=== PATIENT | female | born 1935 | race Caucasian/White ===

== ENCOUNTER → 2016-10-05 | Outpatient (CLI) | payer MEDICARE, BC ==
--- NOTE | 2016-10-24 05:43 | ENG ---
VNG REPORT VNG INDICATIONS: An 80-year-old female with vertigo starting June, sudden onset improving. Had a total of 2 spells only, lasting 2 minutes. VNG FINDINGS: Saccades show intact peak velocities, accuracies and latencies. Gaze with fixation is negative for nystagmus in any of the directions of gaze including centrally with vision denied. Tracking shows no significantly breakups. Optokinetic nystagmus shows no significant asymmetry. Static position testing in 6 different positions with eyes open and then with vision denied was negative for any nystagmus. Héctor-Hallpike maneuvers were positive on the right. Caloric testing shows bilateral caloric weakness. IMPRESSIONS: VNG findings showed bilateral caloric weakness. Another test, such as the head thrust test are available, active and passive rotation testing is required to confirm the presence of bilateral vestibular dysfunction. Gary-Hallpike maneuvers were positive on the right suggesting a right positional vertigo. There were no abnormalities to indicate central nervous system dysfunction. MTDD
== END | disposition home or self-care (01) ==
LOC: NEUROMAIN 08:43
PROVIDERS: ATTEND Otolaryngology
DX: R42 Dizziness and giddiness (principal)
CPT/HCPCS: 92537; 92540

== ENCOUNTER → 2017-11-07 | Outpatient (CLI) | payer MEDICARE, BC ==
--- NOTE | 2017-11-07 23:13 | MR ---
EXAMINATION TYPE: MR cervical spine wo con DATE OF EXAM: 11/07/2017 COMPARISON: HISTORY: Cervicalgia / Spinal stenosis TECHNIQUE: Multiplanar, multisequence images of the cervical spine were acquired. The cervical vertebra have normal alignment. There is degenerative disc space narrowing throughout th e cervical spine. There are posterior disc herniations at C3-4 C4-5 C5-6 with encroachment on the spi nal canal and cervical spinal cord. There is slight flattening of the cord. C3-4 disc herniation is s lightly to the left side. C4-5 disc herniation is midline. C 5 6 disc herniation is midline. The alec l is narrowed to 6 mm. The brainstem appears intact. There is no compression fracture. Posterior [place] ents are intact. There is no cervical paraspinal mass. There is C7-T1 posterior central mild disc herniation with elevation of the posterior longitudinal l igament. This is present narrowly in the midline. The canal is narrowed to 7.5 mm. IMPRESSION: Multilevel spondylotic changes. Multilevel posterior cervical disc herniation that is more at levels from C3 to C6 with 6 mm spinal stenosis.
== END | disposition home or self-care (01) ==
LOC: RADMRIMAIN 13:11
PROVIDERS: ATTEND Family Medicine
DX: M48.02 Spinal stenosis, cervical region (principal); M50.21 Other cervical disc displacement, high cervical region; M47.812 Spondylosis without myelopathy or radiculopathy, cervical region
CPT/HCPCS: 72141

== ENCOUNTER → 2018-01-18 | Outpatient (CLI) | payer MEDICARE, BC ==
[2018-01-18 09:31] LABS: Basophils # (A) 0.1 k/uL (0-0.2); Basophils % (A) 1 %; Eosinophils # (A) 0.2 k/uL (0-0.7); Eosinophils % (A) 3 %; HCT 49.8 % (34.0-46.0); HGB 15.4 gm/dL (11.4-16.0); Lymphocytes # (A) 1.9 k/uL (1.0-4.8); Lymphocytes % (A) 31 %; MCH 28.2 pg (25.0-35.0); Mean Platelet Volume 6.9; Monocytes # (A) 0.5 k/uL (0-1.0); Monocytes % (A) 8 %; Neutrophils # (A) 3.3 k/uL (1.3-7.7); Neutrophils % (A) 55 %; Platelet Count 245 k/uL (150-450); RBC 5.48 m/uL (3.80-5.40); RDW 15.1 % (11.5-15.5); WBC 6.1 k/uL (3.8-10.6)
[2018-01-18 09:41] LABS: INR 1.1 (<1.2); Partial Thromboplastin Time 23.4 sec (22.0-30.0); Prothrombin Time 10.6 sec (9.0-12.0)
[2018-01-18 10:15] LABS: Albumin 3.8 g/dL (3.5-5.0); Calcium 9.5 mg/dL (8.4-10.2); Potassium 4.2 mmol/L (3.5-5.1); Total Bilirubin 0.9 mg/dL (0.2-1.3); Total Protein 6.7 g/dL (6.3-8.2)
[2018-01-18 10:27] LABS: Appearance,Urine Cloudy (Clear); Bacteria,Urine Moderate /hpf; Bilirubin,Urine Negative (Negative); Blood,Urine Negative (Negative); Color,Urine Yellow; Glucose,Urine (UA) Negative (Negative); Ketones,Urine Negative (Negative); Leukocyte Esterase,Urine Large (Negative); Mucus,Urine Rare /hpf; Nitrite,Urine Positive (Negative); PH, Urine 6.5 (5.0-8.0); Protein,Urine Negative (Negative); RBC,Urine 4 /hpf (0-5); Specific Gravity,Urine 1.013 (1.001-1.035); Squamous Epithelial Cell,Urine 5 /hpf (0-4); Urobilinogen,Urine <2.0 mg/dL (<2.0); WBC,Urine 35 /hpf (0-5)
== END ==
LOC: LABWHC1 08:30
DX: M48.02 Spinal stenosis, cervical region (principal)
CPT/HCPCS: 36415; 80053; 81001; 85025; 85610; 85730

== ENCOUNTER → 2018-08-09 | Outpatient (CLI) | payer MEDICARE, BC ==
--- NOTE | 2018-08-09 15:20 | CT ---
EXAMINATION TYPE: CT cervical spine wo con DATE OF EXAM: 08/09/2018 COMPARISON: NONE HISTORY: Spinal stenosis CT DLP: 364.9 mGycm. Automated Exposure Control for Dose Reduction was Utilized. TECHNIQUE: CT scan of the cervical spine is obtained without contrast, axial images are obtained, sa gittal and coronal reformatted images are also reviewed. FINDINGS: Cervical spine is visualized in its entirety from C1 through upper thoracic levels, demonst rates satisfactory alignment without evidence of acute fracture or dislocation. Prevertebral soft ti ssue appears within normal limits. The C1-C2 articulation is within normal limits on the coronal markell ges. Intervertebral disc space narrowing, small anterior osteophytes, and posterior disc osteophyte comple xes are seen throughout the cervical spine. Osseous demineralization is also seen. Narrowing of the a tlantodental interval is on a degenerative basis. Spinous process absence and laminectomy defects are seen from C3 through C7. There is a calcified dis c herniation at C6-C7 however this does not create spinal canal stenosis as there is surgical resecti on of the posterior elements. Uncovertebral hypertrophy and facet arthropathy creates mild left neural foraminal narrowing at C2-C3 moderate bilateral neural foraminal narrowing at C4-C5 in combination with a central disc herniation , moderate to severe bilateral neural foraminal narrowing at C5-C6, mild bilateral neural foraminal n arrowing at C6-C7, and minimal neural foraminal narrowing on the right at C7-T1. At C2-C3 there is a small central disc herniation without significant spinal canal stenosis and at C3 -C4 there is a large left paracentral disc herniation. No spinal canal stenosis is seen as there is r esection of the posterior elements at the site. Evaluation for epidural fibrosis is limited without c ontrast. Lung apices are well aerated. Extensive atherosclerosis is seen of the carotid bulbs. IMPRESSION: 1. No evidence of a vertebral body height loss or malalignment of the cervical spine. 2. Multilevel spinous process and bilateral facet resection from C3 through C7 with no spinal canal s tenosis seen at these levels given the posterior spinal canal decompression despite a large left para central disc herniation at C3-C4. 3. Multilevel neural foraminal narrowing as described above as result of uncovertebral hypertrophy an d facet arthropathy. 4. Diffuse osseous demineralization. 5. Small central disc herniation at C2-C3 without significant spinal canal stenosis.
== END | disposition home or self-care (01) ==
LOC: RADCTMAIN 13:04
DX: M48.02 Spinal stenosis, cervical region (principal); M50.21 Other cervical disc displacement, high cervical region; M81.0 Age-related osteoporosis without current pathological fracture
CPT/HCPCS: 72125

== ENCOUNTER → 2018-09-14 | Outpatient (CLI) | payer MEDICARE, BC ==
--- NOTE | 2018-09-14 10:18 | FL ---
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 TECHNIQUE: A single contrast UGI study is performed due to surgical history. A total of 48 seconds o f fluoroscopic time was utilized during procedure. 45 spot images are saved to PACS. FINDINGS: Pick Pulling Machine Tender image of the abdomen redemonstrates cholecystectomy clips and scattered pelvic phleb oliths. Overall nonobstructive bowel gas pattern. The esophagus shows some dysmotility with abnormal secondary and tertiary contractions. There is mass effect mid esophageal level from prominent ectatic aortic knob No evidence of recurrent hiatal herni a or stricture noted. The stomach shows no pooling ulcer. No significant gastroesophageal reflux was seen during real time performance of this study. The duodenal bulb, sweep, and proximal small bowel loops are unremarkable. IMPRESSION: Underlying mild to moderate Esophageal dysmotility without recurrent hernia or significan t narrowing at site of fundoplication surgery.
== END ==
LOC: RADFLWHC 08:54
PROVIDERS: ATTEND Family Medicine
DX: K22.4 Dyskinesia of esophagus (principal); D13.0 Benign neoplasm of esophagus
CPT/HCPCS: 74241

== ENCOUNTER → 2019-02-21 | Outpatient (CLI) | payer MEDICARE, BC ==
--- NOTE | 2019-02-21 15:03 | XR ---
Cervical spine with flexion and extension views HISTORY: Neck pain for months, M 47.12, spinal stenosis 8 views of the cervical spine Correlation to prior CT cervical spine dated 08/09/2018 There is multilevel spondylosis. Loss of disc height is present at the intervertebral levels especial ly at C4-5, C5-6 and C6-7. There is reversal the normal cervical lordosis. Cervical vertebral bodies show preserved height. Bone mineralization is reduced. Minimal retrolisthesis grade 1 C5-6. There is multilevel facet arthropathy. Prevertebral soft tissues are normal. No significant change and listhes is on flexion and extension views. Multilevel foraminal encroachment noted especially at C4-5, C5-6 a nd C6-7 bilaterally. Odontoid view somewhat limited. IMPRESSION: Osteopenia, degenerative disc disease, facet arthropathy.
== END | disposition home or self-care (01) ==
LOC: RADXRMAIN 14:02
DX: M50.30 Other cervical disc degeneration, unspecified cervical region (principal); M46.92 Unspecified inflammatory spondylopathy, cervical region; M85.88 Other specified disorders of bone density and structure, other site
CPT/HCPCS: 72052

== ENCOUNTER → 2019-04-12 | Outpatient (CLI) | payer MEDICARE, BC ==
--- NOTE | 2019-04-12 11:14 | MR ---
EXAMINATION TYPE: MR cervical spine wo con DATE OF EXAM: 04/12/2019 COMPARISON: Prior MRI cervical spine 11/07/2017 HISTORY: Spondylosis With Myelopathy TECHNIQUE: Multiplanar, multisequence images of the cervical spine were acquired. C2-C3: Posterior disc bulge causes mild anterior mass effect on the thecal sac. No significant centra l stenosis or foraminal encroachment. C3-C4: Left posterior paracentral disc herniation causes anterolateral mass effect on the thecal sac. Cord contact is not seen definitively on the axial images as on prior exam although there is some foley ggestion of mass effect on the lateral cervical cord, no significant foraminal encroachment. There is facet arthropathy change. C4-C5: There is a central posterior disc herniation, endplate disc complex causes anterior mass effec t on the thecal sac and possibly contacting the anterior cervical cord. Left-sided foraminal encroach ment is present due to uncovertebral joint hypertrophy and associated facet arthropathy. C5-C6: There is a posterior central disc herniation present. There may be contact the anterior cervic al cord similar to prior exam. Left-sided foraminal encroachment is present greater than right due to uncovertebral joint hypertrophy and facet arthropathy. No significant spinal stenosis. C6-C7: There is a Holter disc bulge causing anterior mass effect on the thecal sac. Some bilateral fo raminal encroachment is present due to vertebral joint hypertrophy, facet arthropathy. No significant central stenosis. C7-T1: There is a central posterior disc herniation causing anterior mass effect on the thecal sac. T here is less central stenosis. No foraminal encroachment. Cervical segments are intact. There is near normal alignment, minimal retrolisthesis grade 145, C5-6 . Cervical spinal cord is of normal signal. Craniovertebral junction relationships are within anthony l limits. There is multilevel spondylosis. Endplate discogenic marrow signal changes are again noted is loss of disc height signal at intervertebral levels especially at C2-3, 4 5, C5-6 and C6-7. IMPRESSION: Degenerative disc disease, multilevel disc herniations, foraminal encroachment similar to prior exam.
== END | disposition home or self-care (01) ==
LOC: RADMRIMAIN 08:59
DX: M50.00 Cervical disc disorder with myelopathy, unspecified cervical region (principal)
CPT/HCPCS: 72141

== ENCOUNTER 2020-01-03 07:30 | Day surgery (SDC) | payer MEDICARE, BC ==
[2020-01-01 13:40] VITALS: BMI 25.8
[~2020-01-03 07:30] MED LIST: ALPRAZolam 0.25 MG TAB PO PRN; ALPRAZolam 0.5 MG TAB PO PRN; ASPIRIN 325 MG TAB PO ONE; ATORVASTATIN 80 MG TAB PO ONE; NITROGLYCERIN SL TABS 0.4 MG TAB SUBLINGUAL PRN; SODIUM CHLORIDE 0.9% 1,000 ML in EMPTY BAG 1 BAG IV ONE
[2020-01-03] MEDS ORDERED: fentaNYL (PF) 50 MCG/ML 2 ML AMP ONE ×2 (08:21→11:05)
[2020-01-03] MEDS: BENZOCAINE SPRAY 1 CAN TOPICAL ONE ×2 (08:29→08:35)
[2020-01-03] MEDS ORDERED: IV FLUID CONTINUATION 1,000 ML IV ONE (08:30)
[2020-01-03] MEDS: fentaNYL (PF) 50 MCG/ML 2 ML AMP IV ONE ×2 (08:56→09:01)
[2020-01-03] MEDS ORDERED: MIDAZOLAM 2 MG/2 ML VIAL IV ONE (08:57)
[2020-01-03] MEDS ORDERED: SODIUM CHLORIDE 0.9% 1,000 ML IV SCH ×2 (09:15→12:15)
--- NOTE | 2020-01-03 09:17 | P.TEE ---
Indications for Procedure(s): Aortic stenosis Date of Procedure: 01/03/20 Preoperative Diagnosis: Aortic stenosis Postoperative Diagnosis: Critical aortic stenosis Procedure(s) Performed: MANINDER Description of Procedure(s): INDICATION: This is a 84-year-old female was found to have severe aortic stenosis by transthoracic echo. A MANINDER examination is requested to assess aortic valve disease and also mitral valve disease CONSENT:, Verbal informed consent was obtained from the patient PROCEDURE: The patient was brought to the lab in a fasting state. She was prepped and draped in the usual fashion. The throat was sprayed with Cetacaine. A lubricated Omni probe was introduced in the oropharynx and advanced into the esophagus and stomach and she was given 2 mg of Versed and 50 g of fentanyl for sedation. Multiple views obtained from both stomach and esophagus. Color, pulsed and continuous Doppler studies were performed. Saline contrast bubble injection was also performed. Patient tolerated the procedure well. No im mediate complications FINDINGS:. The aortic valve appears to be calcified and trileaflet. There is a restricted opening excursion with a valve area of about 0.9 cm. There is no aortic regurgitation. The peak gradient of about 68 with a mean of 53 was obtained suggestive of severe aortic stenosis. Mitral valve showed moderate mitral regurgitation, which is central. The PISA value is about 0.6. The left atrial appendage is free of any clot. The interatrial septum is intact. No spontaneous can't. No crossing of bubbles with injection of the saline contrast bubbles. LV function appeared with preserved. The aorta showed mild to moderate plaque IMPRESSION: #1. Critical aortic stenosis. #2. Moderate mitral regurgitation. #3. No PFO #4. No clot in the left atrial appendage. #5. Left ventricular function is preserved. #6. There is mild to moderate plaque in the aorta. Plan: Proceed with cardiac catheterization. May need aortic valve replacement .
[2020-01-03] MEDS ORDERED: LIDOCAINE 1% INJ 10MG/ML (20 ML MDV) ONE (10:43)
[2020-01-03] MEDS ORDERED: MIDAZOLAM 2 MG/2 ML VIAL IVP ONE ×2 (11:11)
[2020-01-03 11:38] LABS: O2 Sat Blood Gas 75.4 %
[2020-01-03 11:40] LABS: O2 Sat Blood Gas 75.7 %
[2020-01-03] MEDS ORDERED: IOPAMIDOL-370 100ML BTL INJ ONE (11:40)
[2020-01-03] MEDS ORDERED: NITROGLYCERIN SL TABS 0.4 MG TAB SUBLINGUAL ONE ×2 (11:42→11:50)
[2020-01-03 12:45] VITALS: RESP 16; TEMP 97.4
--- NOTE | 2020-01-03 13:27 | CC ---
CARDIAC CATHETERIZATION REPORT DATE OF SERVICE: 01/03/2020 PROCEDURE: Right and left heart catheterization and coronary angiography. PERFORMED BY: Dr. Darin Felder. Moderate conscious sedation time was 31 minute. Patient was administered Versed. Oxygen saturation, hemodynamics and EKG were monitored closely. PROCEDURE NOTE: Under local anesthesia and strict aseptic precautions, a 6-Stateless introducer was placed in the right femoral artery and 8-Stateless introducer in the right femoral vein under strict aseptic precautions and local anesthesia. Using a balloon-tipped floatation catheter, I performed right heart catheterization, checked the thermodilution and cardiac outputs. Saturations were obtained. Following that coronary angiography was performed using standard Lisa catheters. LV pressures were not checked. The sheaths were taken out, manual compression used to secure hemostasis and patient was sent to the room in stable condition. CARDIAC CATHETERIZATION FINDINGS: Right atrial pressure was 3 mmHg, right ventricular pressure was 34/3, pulmonary artery pressure was 34/12 with a mean of 20. Pulmonary capillary wedge pressure was 13 mmHg. Femoral artery saturation was 93%, pulmonary artery saturation was 75%. There was no oxygen step-up. Thermodilution cardiac output was obtained, but it was inaccurate, it was over 10 L. José cardiac output was also obtained. CORONARY ANGIOGRAPHIC FINDINGS: RIGHT CORONARY ARTERY: A very dominant vessel, moderate to heavily calcified. No significant obstructive disease and distally bifurcates into a large PDA and PLV, both of which supply a sizable amount of myocardium. There is no significant disease in the RCA which is very calcified. RCA appears to be a super dominant vessel with a very large PLV system and a moderate-sized PDA system. No significant disease. LEFT MAIN CORONARY ARTERY: Long patent disease-free vessel that bifurcates into LAD and circumflex. LEFT ANTERIOR DESCENDING CORONARY ARTERY: This is a very tortuous vessel. Moderate calcification seen throughout. It gives off septal and diagonal branches. At the origin of the diagonal branch there is eccentric 70%-80% stenosis, calcified and the diagonal at its origin also has a 70% to 80% stenosis. The LAD and diagonal are both moderately calcified and the disease is quite significant. Just before the 70-80% stenosis in the LAD there is also another 30-40% narrowing. Diagonal at its origin has 80% narrowing. Beyond the stenosis, the LAD and diagonal are of good caliber and supplies a sizable amount of myocardium. There is another large second diagonal which is free of significant disease and several septal branches are also free of significant disease. LEFT POSTERIOR CIRCUMFLEX CORONARY ARTERY: Nondominant vessel, fair caliber and distribution, supplies a sizable amount of myocardium. Minor irregularities. No significant disease. Left ventriculogram was not performed and LV pressures were not checked. FINAL IMPRESSION: This patient has normal right-sided pressures. Thermodilution cardiac output is inaccurate. José cardiac output is pending at the time of the dictation. Arterial saturation was 93% and vein and pulmonary saturation was 75%. FINAL IMPRESSION: This patient has a right dominant system, calcified RCA, super dominant vessel, no significant disease. The circumflex is nondominant, no significant disease. Mid LAD moderately calcified, has a moderate-sized length of disease with 80% stenosis and the ostium of the diagonal that comes off from the diseased segment also has 80% stenosis. The right-sided pressures are normal and thermodilution cardiac output is inaccurate and José cardiac output is still pending at the time of the dictation. RECOMMENDATIONS: For now I am recommending that we will seek a surgical opinion and the patient will be given options of open surgery with a graft to the LAD and diagonal versus percutaneous intervention of the LAD and diagonal and percutaneous aortic valve implant. This discussion will occur as an outpatient and I have requested Dr. Cooper to see the patient today in this regard. MMSHITALL / IJN: [id number] /
[2020-01-03 16:33] VITALS: PULSE 57
[2020-01-03 16:34] VITALS: BP 143/77
--- NOTE | 2020-01-03 17:09 | P.GSCN ---
History of Present Illness Consult date: 01/03/20 Reason for Consult: Critical aortic valve stenosis, moderate mitral valve regurgitation and coronary artery disease. Requesting physician: Pablo Felder History of present illness: This is an 84-year-old female patient who is followed by Dr. See Lane on an outpatient basis. She also follows with Dr. BRONSON Felder from cardiology for aortic valve stenosis. She has a past medical history significant for hyperte nsion, degenerative joint disease status post cervical spine surgery. Recently, the patient has had complaints of shortness of breath and feelings of fatigue with activity. She reports that her shortness of breath does resolve with periods of rest. A 2-D echocardiogram was completed on 12/02/2019 which demonstrated a normal left ventricular size with normal function, intermediate diastolic dysfunction with an ejection fraction of 60%, abnormal, trileaflet aortic valve, trace aortic valve regurgitation, severe aortic valve stenosis with an aortic valve area of 0.91 cm, a peak/mean gradient 67 mmHg/54 mmHg, moderate mitral valve regurgitation, [id number] tricuspid valve regurgitation and physiologic pulmonic valve regurgitation. Due to the findings on the 2-D echocardiogram and the patient's symptoms of shortness of breath she was recommended to undergo a transesophageal echocardiogram and cardiac catheterization. Today 01/03/2020 she underwent an elective cardiac catheteriza tion and transesophageal echocardiogram. The transesophageal echocardiogram results demonstrated a critical aortic valve stenosis with a restricted opening excursion with a valve area of about 0.9 cm, no aortic valve regurgitation a peak gradient across the aortic valve 68 mmHg and a mean gradient of 53 mmHg suggestive of severe aortic valve stenosis. It also showed moderate mitral valve regurgitation with a central jet, PISA value was about 0.6, a preserved left ventricular function and mild to moderate plaque in the aorta. The cardiac catheterization results showed her mid left anterior descending coronary artery to be moderately calcified with a moderate sized length of disease with an 80% stenosis of the ostium of the diagonal coronary artery and an 80% stenosis of her diagonal coronary artery. Subsequently, due to the findings on the transesophageal echocardiogram and cardiac catheterization results a consult was placed to Dr. Alex Cooper for further evaluation and treatment recommendations. Review of Systems A 14 point review systems was completed and was negative except as mentioned in the HPI. 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, alicia fundloplication neck c1 to c6 stenosis had surgery, cataracts bilateral eyes Past Anesthesia/Blood Transfusion Reactions: No Reported Reaction Additional Past Anesthesia/Blood Transfusion Reaction / Comm: no problems w/ prior blood transfusion Past Psychological History: No Psychological Hx Reported Smoking Status: Never smoker Past Alcohol Use History: Rare Past Drug Use History: None Reported - Past Family History Father Family Medical History: Cancer Brother(s) Family Medical History: Cancer Sister(s) Family Medical History: Cancer Medications and Allergies Home Medications Medication Instructions Recorded Confirmed Type amLODIPine BESYLATE [Norvasc] 10 mg PO QAM 12/16/14 01/03/20 History Cholecalciferol [Vitamin D3] 1,000 unit PO DAILY 12/23/15 01/03/20 History Multivitamins, Thera [Multivitamin] 1 tab PO DAILY 12/23/15 01/03/20 History Vit C/E/Zn/Coppr/Lutein/Zeaxan 1 each PO DAILY 01/01/20 01/03/20 History [Preservision Areds 2 Softgel] Allergies Allergy/AdvReac Type Severity Reaction Status Date / Time hydromorphone HCl AdvReac Hallucinati Verified 01/03/20 07:41 [From Dilaudid] ons Surgical - Exam Vital Signs Temp Pulse Resp BP Pulse Ox 98.1 F 63 18 160/77 97 01/03/20 07:56 01/03/20 07:56 01/03/20 07:56 01/03/20 07:56 01/03/20 07:56 - General well developed, well nourished, no distress, no pain - Eyes PERRL, normal ocular movement, no icteric - ENT normal pinna, normal nares, normal mucosa, no hearing loss, no congestion - Neck Neck is supple, no JVD, bilateral carotid bruits present. no masses, trachea midline, no venous distension - Respiratory Lung sounds are essentially clear throughout. No wheezes, rhonchi or crackles. Respirations are symmetrical and Nonlabored. - Cardiovascular Regular rhythm with a bradycardic rate. S1 and S2 present, negative for S3 or gallop. Positive systolic murmur 3/6 at the base. No edema present. - Abdomen Abdomen is soft, nontender and nondistended. Active bowel sounds present all 4 abdominal quadrants. No guarding or rigidity. No organomegaly appreciated. - Genitourinary Deferred - Rectum Deferred - Integumentary no rash, no growths, no abnormal pigmentation - Neurologic Cranial nerves II through XII intact. normal coordination, normal sensation - Musculoskeletal normal gait, normal posture - Psychiatric oriented to time, oriented to person, oriented to place, speech is normal, memory intact Results - Imaging Additional studies: Transesophageal echocardiogram films and cardiac catheterization films reviewed by Dr. Alex Cooper. Assessment and Plan Assessment: 1. Severe aortic valve stenosis 2. Coronary artery disease 3. Moderate mitral valve regurgitation 4. Hypertension 5. 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 Her chart and diagnostics were reviewed. The patient's daughter is present at her bedside. The patient was also seen and examined by Dr. Alex Cooper from cardiothoracic surgery. Dr. Cooper reviewed the findings on the transesophageal echocardiogram and cardiac catheterization films with the patient and her daughter present at her bedside. Treatment options for aortic valve stenosis and coronary artery disease discussed with the patient including TAVR and PCI. Dr. Cooper recommends proceeding with TAVR and PCI. The patient agreed with this treatment option and wishes to proceed. The patient reports she is to follow-up with Dr. Felder in the office in the next coming week with timing of PCI and TAVR to be discussed. Thank you Dr. Felder for this consult and we will look for to working with you in the care of this patient. Time with Patient: Greater than 30
== END 2020-01-03 19:01 | disposition home or self-care (01) ==
LOC: CATHCVL 07:30 → 3NCARDOBS 12:24 → CATHCVL 19:01
PROVIDERS: ATTEND Internal Medicine Cardiovascular Disease
DX: I08.3 Combined rheumatic disorders of mitral, aortic and tricuspid valves (principal); I25.10 Atherosclerotic heart disease of native coronary artery without angina pectoris; I77.1 Stricture of artery; I70.0 Atherosclerosis of aorta; R06.02 Shortness of breath; R53.83 Other fatigue; I10 Essential (primary) hypertension; M47.892 Other spondylosis, cervical region; M47.896 Other spondylosis, lumbar region; H35.30 Unspecified macular degeneration; I49.3 Ventricular premature depolarization; M50.30 Other cervical disc degeneration, unspecified cervical region; R09.89 Other specified symptoms and signs involving the circulatory and respiratory systems; Z79.899 Other long term (current) drug therapy; Z90.49 Acquired absence of other specified parts of digestive tract; Z98.890 Other specified postprocedural states; Z90.710 Acquired absence of both cervix and uterus; Z90.89 Acquired absence of other organs; Z87.19 Personal history of other diseases of the digestive system; Z98.41 Cataract extraction status, right eye; Z98.42 Cataract extraction status, left eye; Z88.5 Allergy status to narcotic agent; Z80.9 Family history of malignant neoplasm, unspecified
CPT/HCPCS: 93312; 93320; 93325; 93456; 85018; 82810; C1769 ×3; C1894 ×2; J2250; J3010; Q9967

== ENCOUNTER 2020-01-21 10:59 | Day surgery (SDC) | payer MEDICARE, BC ==
[2020-01-16 13:05] VITALS: BMI 26.6
[~2020-01-21 10:59] MED LIST changes: -ASPIRIN 325 MG TAB PO ONE; +ASPIRIN 325 MG TAB PO STA; -ATORVASTATIN 80 MG TAB PO ONE
[2020-01-21] MEDS ORDERED: SODIUM CHLORIDE 0.9% 1,000 ML IV ONE (11:47)
[2020-01-21] MEDS: MIDAZOLAM 2 MG/2 ML VIAL IV ONE ×4 (12:10→12:15)
[2020-01-21] MEDS ORDERED: LIDOCAINE 1% INJ 10MG/ML (20 ML MDV) SQ ONE (12:14)
[2020-01-21] MEDS ORDERED: IOPAMIDOL-370 100ML BTL INJ ONE ×2 (12:30→13:51)
[2020-01-21] MEDS ORDERED: NITROGLYCERIN 1000MCG/10ML SYRINGE INTRACORON ONE (13:29)
[2020-01-21] MEDS ORDERED: CLOPIDOGREL 75 MG TAB PO ONE (13:47)
[2020-01-21] MEDS ORDERED: ATROPINE SULFATE 0.1 MG/ML 10ML SYRINGE IV PRN (13:50)
[2020-01-21] MEDS ORDERED: RX INFO: IV CONTRAST WAS GIVEN 1 EACH MISC MISCELLANE PRN (13:50)
[2020-01-21] MEDS ORDERED: ZOLPIDEM 5 MG TAB PO PRN (13:50)
[2020-01-21] MEDS ORDERED: MAG HYDROX/AL HYDROX/SIMETH 30 ML CUP PO PRN (13:50)
[2020-01-21] MEDS ORDERED: SODIUM CHLORIDE 0.9% 1,000 ML IV SCH (14:00)
--- NOTE | 2020-01-21 18:38 | PTCA ---
PERCUTANEOUSTRANS CORORONARY ANGIOGRAPHY DATE OF SERVICE: 01/21/2020 PROCEDURE: 1. Orbital atherectomy of proximal/mid left anterior descending coronary artery. 2. Percutaneous transluminal coronary angioplasty and stenting of proximal/mid left anterior descending coronary artery with 2 drug-eluting stents. PERFORMED BY: Dr. Darin Felder. Moderate conscious sedation time was 84 minutes. Patient was administered Versed. Oxygen saturation, hemodynamics and EKG were monitored closely. CLINICAL INFORMATION: Mrs. China Coreas is an 84-year-old elderly lady with a history of severe aortic stenosis and hypertension who underwent cardiac cath and transesophageal echo about 3 weeks ago. Study revealed severe aortic stenosis. Patient was seen by Cardiac Surgery, who advised PCI and TAVR as opposed to open surgery. After extensive discussion with the patient and her daughter, she was brought in for the procedure electively. Given moderate calcification involving the LAD, she was advised orbital atherectomy. PROCEDURE NOTE: Under local anesthesia and strict aseptic precautions, a 6-Australian introducer was placed in the right femoral artery. A JL3.5 guide catheter was used to cannulate the left coronary artery. Initially I tried a Whisper wire, then switched over to a run-through wire and crossed the lesion, and wire was kept distally. With a Teleport catheter, I exchanged this wire for a Nitinol atherectomy wire. I then performed orbital atherectomy. There was some difficulty advancing the catheter, and I had to use a Dynaglide. Three passes were made, with modest improvement. Subsequently I tried to advance a stent, but I had difficulty. I switched over to a 3.0 caliber 12 mm NC Trek balloon. With this I pre-dilated the lesion and also proximal to the lesion. I was able to improve the lesion substantially angiographically. I then switched over to another short run-through wire. I advanced initially a 15 mm 3.5 caliber Xience stent, but I had difficulty because of tortuosity and calcification proximal to the lesion. I switched over to an 8 mm long 3.5 caliber Xience stent and deployed this in the lesion to the distal aspect of the lesion. Another 3.5 caliber 8 mm Xience stent was deployed proximal to it, telescoping into it. Both stents were deployed at 13 atmospheres. Patient had chest pain, precordial T-wave prominence and mild ST elevation. Excellent angiographic result without complication was achieved. Patient received heparin intravenously and ACT was about 331. She received 600 mg of Plavix. Multiple final angiograms were obtained. The sheath was then taken out and an Angio-Seal device used to secure hemostasis. The patient was sent to the room in a stable condition. Excellent angiographic result without complication was achieved. Results were discussed with the patient as well as her daughter. She will be discharged tomorrow if she remains stable. MMYULI / MARYN: [id number] /
[2020-01-22 00:29] VITALS: RESP 16
[2020-01-22 06:57] LABS: Basophils # (A) 0.1 k/uL (0-0.2); Basophils % (A) 1 %; Eosinophils # (A) 0.2 k/uL (0-0.7); Eosinophils % (A) 3 %; HCT 41.1 % (34.0-46.0); HGB 13.2 gm/dL (11.4-16.0); Lymphocytes # (A) 1.4 k/uL (1.0-4.8); Lymphocytes % (A) 24 %; MCH 29.3 pg (25.0-35.0); MCHC 32.3 g/dL (31.0-37.0); MCV 90.8 fL (80.0-100.0); Mean Platelet Volume 8.1; Monocytes # (A) 0.5 k/uL (0-1.0); Monocytes % (A) 8 %; Neutrophils # (A) 3.8 k/uL (1.3-7.7); Neutrophils % (A) 63 %; Platelet Count 182 k/uL (150-450); RBC 4.52 m/uL (3.80-5.40); RDW 14.5 % (11.5-15.5); WBC 6.1 k/uL (3.8-10.6)
[2020-01-22 07:01] LABS: Calcium 8.3 mg/dL (8.4-10.2); Potassium 3.9 mmol/L (3.5-5.1)
[2020-01-22 07:35] VITALS: BP 129/79; PULSE 65; TEMP 97.8
[2020-01-22] MEDS ORDERED: ASPIRIN 81 MG PO SCH (09:00)
[2020-01-22] MEDS ORDERED: ATORVASTATIN 40 MG TAB PO SCH (09:00)
[2020-01-22] MEDS ORDERED: CHOLECALCIFEROL 1,000 UNIT TAB PO SCH (09:00)
[2020-01-22] MEDS ORDERED: VIT A,C & E-LUTEIN-MINERALS 1 EACH TAB PO SCH (09:00)
[2020-01-22] MEDS ORDERED: MULTIVITAMINS, THERA 1 EACH TAB PO SCH (09:00)
[2020-01-22] MEDS ORDERED: amLODIPine 10 MG TAB PO SCH (09:00)
[2020-01-22] MEDS ORDERED: METOPROLOL TARTRATE 12.5 MG TAB PO SCH (09:00)
--- NOTE | 2020-01-22 09:39 | DS ---
DISCHARGE SUMMARY DATE OF ADMISSION: 01/21/2020 DATE OF DISCHARGE: 01/22/2020. DIAGNOSES: 1. CAD with unstable angina. 2. Severe aortic stenosis. 3. Hypertension. 4. Hyperlipidemia. Mrs. China Coreas was admitted to the hospital electively for a PCI of the mid LAD, which was a calcified severe lesion. She has severe aortic stenosis, was seen by Cardiac Surgery. Advised to have percutaneous intervention of coronary disease and a percutaneous aortic valve implant down the road. With this plan, she was brought in for the procedure yesterday. I performed from the right femoral approach. PTCA and stenting of proximal/mid LAD with orbital atherectomy and 2 drug-eluting stents. Excellent angiographic result was achieved. Postprocedure course was unremarkable. There was there was a small hematoma, but this morning the groin looks clean and dry. There is no bruit. There is no evidence of any significant hematoma. Hemoglobin, platelet count, and renal function are stable. EKG is unremarkable. She is asymptomatic Blood pressure 130/70, pulse rate is 70 per minute, ejection systolic murmur is audible lungs are clear abdomen looks exam unchanged right groin is clean and dry with a small focal area of tenderness. No significant hematoma or bruit. Distal pulses are good. Plan is to discharge her today and I will see her in the office this Monday at 10 am. Discharge instructions regarding activity, diet and medications were given. She will be on dual antiplatelet therapy, beta michelle and statin agent and amlodipine. MMODL / IJN: [id number] /
[2020-01-22] MEDS ORDERED: CLOPIDOGREL 75 MG TAB PO SCH (12:00)
== END 2020-01-22 11:21 | disposition home or self-care (01) ==
LOC: CATHCVL 10:59 → 3SCARD 14:11 → CATHCVL 01-22 11:21
PROVIDERS: ATTEND Internal Medicine Interventional Cardiology
DX: I25.110 Atherosclerotic heart disease of native coronary artery with unstable angina pectoris (principal); I35.0 Nonrheumatic aortic (valve) stenosis; I10 Essential (primary) hypertension; I49.3 Ventricular premature depolarization; E78.5 Hyperlipidemia, unspecified; M47.812 Spondylosis without myelopathy or radiculopathy, cervical region; H35.30 Unspecified macular degeneration; Z79.899 Other long term (current) drug therapy
CPT/HCPCS: 85347; 80048; 85025; C9602; C1769 ×7; C1760; C1887; C1725; C1894; C1714; C1874; J2250; J2001; J1644; Q9967

== ENCOUNTER → 2020-09-04 | Outpatient (CLI) | payer MEDICARE, BC ==
--- NOTE | 2020-09-04 11:14 | MR ---
EXAMINATION TYPE: MR brain and iac wo/w con DATE OF EXAM: 09/04/2020 COMPARISON: Prior brain MRI 09/17/2009 HISTORY: DIZZY, FACIAL NERVE DISORDER, HEARING LOSS, TINNITUS, R/O MINI STROKES TECHNIQUE: Multiplanar, multisequence images of the brain and brainstem is performed without and with IV contras t, utilizing 7.5ML mL intravenous Gadavist . FINDINGS: Diffusion weighted images demonstrate no evidence of a recent infarct or other diffusion ab normality. There is no extra-axial fluid collection abnormality. There is been some progression in white matter signal changes on inversion recovery T2-weighted sequences the pericallosal, periventric ular white matter, focus of encephalomalacia present within the anterior limb of the internal capsule on the left has developed in the interval. Pericallosal hyperintensity on axial image 23 and inversi on recovery dataset measures 1.7 cm in AP dimension of approximately 20-30 lesions are present, there is some progression of hyperintensity within the right duy and inversion recovery, T2-weighted sequ ences, hypointensity on T1-weighted images. The ventricular system and cisternal spaces are normal in size and appearance. The brain volume is age appropriate. Additionally, there is no cerebellopontine angle mass, no evident abnormal enhancement within the int ernal auditory canals. Midline structures demonstrate normal morphology. The craniocervical junction appears within normal limits. Post contrast images demonstrate no abnormal enhancement. The dural venous sinuses appear pa tent. The visualized sinuses are are cool for minimal mucosal disease along the ethmoid air cells, an d the globes are intact. IMPRESSION: Nonspecific white matter demyelination may be due to chronic small vessel ischemic change s, there is encephalomalacia that is developed in the interval as described. No evident cerebellopont ine angle mass, no abnormal enhancement or soft tissue along the internal auditory canals.
== END | disposition home or self-care (01) ==
LOC: RADMRIMAIN 09:32
PROVIDERS: ATTEND Otolaryngology
DX: R09.89 Other specified symptoms and signs involving the circulatory and respiratory systems (principal)
CPT/HCPCS: 70553; A9585

== ENCOUNTER → 2021-01-22 | Outpatient (CLI) | payer MEDICARE, BC ==
[2021-01-22 15:04] LABS: Basophils # (A) 0.08 X 10*3/uL (0.00-0.10); Basophils % (A) 1.1 %; Eosinophils # (A) 0.13 X 10*3/uL (0.04-0.35); Eosinophils % (A) 1.8 %; HCT 47.6 % (37.2-46.3); Lymphocytes # (A) 1.85 X 10*3/uL (0.90-5.00); Lymphocytes % (A) 25.2 %; MCH 28.2 pg (27.0-32.0); MCHC 31.5 g/dL (32.0-37.0); MCV 89.6 fL (80.0-97.0); Mean Platelet Volume 11.1 fL (9.5-12.2); Monocytes # (A) 0.83 X 10*3/uL (0.20-1.00); Monocytes % (A) 11.3 %; Neutrophils # (A) 4.44 X 10*3/uL (1.80-7.70); Neutrophils % (A) 60.3 %; Platelet Count 226 X 10*3/uL (140-440); RBC 5.31 X 10*6/uL (4.10-5.20); RDW 15.9 % (11.5-14.5); WBC 7.35 X 10*3/uL (4.50-10.00)
[2021-01-22 22:00] LABS: African American GFR (CKD) 78.6 (60.0-200.0); Albumin/Globulin Ratio 1.6 (1.60-3.17); Anion Gap 14.3 mmol/L (4.00-12.00); BUN/Creat Ratio 27.72 Ratio (12.00-20.00); Blood Urea Nitrogen 21.9 mg/dL (9.0-27.0); Carbon Dioxide 22.9 mmol/L (21.6-31.8); Chol/HDL Ratio 2.01 Ratio; Globulin 2.5 g/dL (1.6-3.3); HDL Cholesterol 57.6 mg/dL (40.00-60.00); LDL Cholesterol,Calculated 39.1 mg/dL (0.0-131.0); Non-African American GFR(CKD) 67.8 (60.0-200.0); Potassium 4.3 mmol/L (3.5-5.5); Total Bilirubin 0.6 mg/dL (0.30-1.20); Total Protein 6.5 g/dL (6.2-8.2); Triglycerides 96.7 mg/dL (0.00-149.00); VLDL Calculation 19.34 mg/dL (5.00-40.00)
== END | disposition home or self-care (01) ==
LOC: LABWHC1 10:21
PROVIDERS: ATTEND Physician Assistant
DX: Z00.00 Encounter for general adult medical examination without abnormal findings (principal); I10 Essential (primary) hypertension; E78.2 Mixed hyperlipidemia; E55.9 Vitamin D deficiency, unspecified
CPT/HCPCS: 36415; 80053; 80061; 82306; 84443; 85025

== ENCOUNTER 2022-12-15 06:12 | Inpatient (IN) | payer MEDICARE, BC ==
[2022-12-15] MEDS ORDERED: SODIUM CHLORIDE 0.9% 1,000 ML IV STA (06:20)
[2022-12-15] MEDS ORDERED: METOCLOPRAMIDE 5 MG/ML 2 ML VIAL IVP STA (06:20)
[2022-12-15] MEDS ORDERED: IBUPROFEN 600 MG TAB PO STA (06:21)
[2022-12-15] MEDS ORDERED: ACETAMINOPHEN IV (For NPO) 1,000 MG in EMPTY BAG 1 BAG IVPB STA (06:21)
--- NOTE | 2022-12-15 06:33 | ED ---
Fever HPI - General Chief Complaint: Fever Stated Complaint: Fever Time Seen by Provider: 12/15/22 06:15 Source: patient, EMS, RN notes reviewed Mode of arrival: EMS Limitations: no limitations - History of Present Illness Initial Comments: 86-year-old female presents emergency Department chief complaint of fever, nausea and vomiting. Patient states she had this rapid woke her up which she states she was cold, had chills noted had a fever. Patient does admit to nausea, sweating up of phlegm. Patient states she has no localized abdominal pain denies any significant back, neck pain and she doesn't that she has urinary frequency with this is an ongoing issue. Patient had no sick contacts. - Related Data Home Medications Medication Instructions Recorded Confirmed amLODIPine BESYLATE [Norvasc] 10 mg PO DAILY 12/16/14 12/15/22 Multivitamins, Thera [Multivitamin] 1 tab PO DAILY 12/23/15 12/15/22 Vit C/E/Zn/Coppr/Lutein/Zeaxan 1 cap PO DAILY 01/01/20 12/15/22 [Preservision Areds 2 Softgel] Aspirin [Adult Low Dose Aspirin EC] 81 mg PO DAILY 01/16/20 12/15/22 Atorvastatin [Lipitor] 40 mg PO DIRECTED 01/16/20 12/15/22 Metoprolol Tartrate 25 mg PO DAILY 01/16/20 12/15/22 Cholecalciferol [Vitamin D3 (25 25 mcg PO DAILY 12/15/22 12/15/22 Mcg = 1000 Iu)] Clopidogrel [Plavix] 75 mg PO DAILY 12/15/22 12/15/22 Mirabegron [Myrbetriq] 50 mg PO DAILY 12/15/22 12/15/22 Allergies Allergy/AdvReac Type Severity Reaction Status Date / Time citalopram [From Celexa] AdvReac chest Verified 12/15/22 08:27 tightness hydromorphone HCl AdvReac Hallucinati Verified 12/15/22 08:27 [From Dilaudid] ons Review of Systems ROS Statement: Those systems with pertinent positive or pertinent negative responses have been documented in the HPI. ROS Other: All systems not noted in ROS Statement are negative. 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, alicia fundloplication, neck c1 to c6 surgery for stenosis, cataracts bilateral eyes, MANINDER Past Anesthesia/Blood Transfusion Reactions: No Reported Reaction Additional Past Anesthesia/Blood Transfusion Reaction / Comment(s): no problems w/ prior blood transfusion Past Psychological History: No Psychological Hx Reported Smoking Status: Never smoker - Past Family History Father Family Medical History: Cancer Brother(s) Family Medical History: Cancer Sister(s) Family Medical History: Cancer General Exam Limitations: no limitations General appearance: alert, in no apparent distress Head exam: Present: atraumatic, normocephalic, normal inspection Eye exam: Present: normal appearance, PERRL, EOMI. Absent: scleral icterus, conjunctival injection, periorbital swelling ENT exam: Present: normal exam, normal oropharynx, mucous membranes moist Neck exam: Present: normal inspection, full ROM. Absent: tenderness, meningismus, lymphadenopathy Respiratory exam: Present: normal lung sounds bilaterally. Absent: respiratory distress, wheezes, rales, rhonchi, stridor Cardiovascular Exam: Present: normal rhythm, tachycardia, normal heart sounds. Absent: systolic murmur, diastolic murmur, rubs, gallop, clicks GI/Abdominal exam: Present: soft, normal bowel sounds. Absent: distended, tenderness, guarding, rebound, rigid Back exam: Absent: CVA tenderness (R), CVA tenderness (L) Neurological exam: Present: alert, oriented X3 Course Vital Signs 12/15/22 12/15/22 12/15/22 06:14 07:21 08:34 Temperature 101.0 F H 101.2 F H 101.1 F H Pulse Rate 102 H 77 Respiratory 20 18 Rate Blood Pressure 187/77 124/65 O2 Sat by Pulse 97 95 Oximetry 12/15/22 09:21 Temperature 100.3 F H Pulse Rate 90 Respiratory 20 Rate Blood Pressure 135/61 O2 Sat by Pulse 97 Oximetry Medical Decision Making - Medical Decision Making Was pt. sent in by a medical professional or institution (, PA, EDUCATION PROGRAM COORDINATOR, urgent care, hospital, or snf...) When possible be specific @ -[residential] Did you speak to anyone other than the patient for history (EMS, parent, family, police, friend...)? What history was obtained from this source @ -[No] Did you review nursing and triage notes (agree or disagree)? Why? @ -[I reviewed and agree with nursing and triage notes] Were old charts reviewed (outside hosp., previous admission, EMS record, old EKG, old radiological studies, urgent care reports/EKG's, snf records)? Report findings @ -[No old charts were reviewed] Differential Diagnosis (chest pain, altered mental status, abdominal pain women, abdominal pain men, vaginal bleeding, weakness, fever, dyspnea, syncope, headache, dizziness, GI bleed, back pain, seizure, CVA, palpatations, mental health, musculoskeletal)? @ -[Differential Fever: Pneumonia, viral URI, endocarditis, myocarditis, pericarditis, otitis, sinusitis, peritonsillar Abscess, retropharyngeal Abscess, epiglottitis, peritonitis, appendicitis, Tammy cystitis, diverticulitis, hepatitis, colitis, UTI, PID, TOA, pyelonephritis, prostatitis, epididymitis, meningitis, encephalitis, pulmonary embolism, CVA, thyroid storm, pancreatitis, adrenal c risis, cavernous sinus thrombosis, this is not meant to be an all-inclusive list. ] EKG interpreted by me (3pts min.). @ -[As above] X-rays interpreted by me (1pt min.). @ -[Chest x-ray shows left lower lobe pneumonia, pleural effusion] CT interpreted by me (1pt min.). @ -[None done] U/S interpreted by me (1pt. min.). @ -[None done] What testing was considered but not performed or refused? (CT, X-rays, U/S, labs)? Why? @ -[None] What meds were considered but not given or refused? Why? @ -[None] Did you discuss the management of the patient with other professionals (professionals i.e. , PA, EDUCATION PROGRAM COORDINATOR, lab, RT, psych nurse, social science research assistant, automobile engine assembler, teacher, control officer, pillowcase turner)? Give summary @ -[Dr. mejia for admission given patient's presentation of fever, leukocytosis, lactic acidosis concerns for pneumonia.] Was smoking cessation discussed for >3mins.? @ -[No] Was critical care preformed (if so, how long)? @ -[No] Were there social determinants of health that impacted care today? How? (Homelessness, low income, unemployed, alcoholism, drug addiction, transportation, low edu. Level, literacy, decrease access to med. care, usp, rehab)? @ -[No] Was there de-escalation of care discussed even if they declined (Discuss DNR or withdrawal of care, Hospice)? DNR status @ -[No] What co-morbidities impacted this encounter? (DM, HTN, Smoking, COPD, CAD, Cancer, CVA, ARF, Chemo, Hep., AIDS, mental health diagnosis, sleep apnea, morbid obesity)? @ -[None] Was patient admitted / discharged? Hospital course, mention meds given and route, prescriptions, significant lab abnormalities, going to OR and other pertinent info. @ -[[facility] for pneumonia, possible sepsis. Patient was started on azithromycin, Rocephin. Patient blood pressure has been stable, patient had blood cultures, sputum culture ordered. Patient admitted to [place] emergency department physician.] Undiagnosed new problem with uncertain prognosis? @ -[No] Drug Therapy requiring intensive monitoring for toxicity (Heparin, Nitro, Insulin, Cardizem)? @ -[No] Were any procedures done? @ -[No] Diagnosis/symptom? @ -[Pneumonia] Acute, or Chronic, or Acute on Chronic? @ -[Acute] Uncomplicated (without systemic symptoms) or Complicated (systemic symptoms)? @ -[Complicated] Side effects of treatment? @ -[No] Exacerbation, Progression, or Severe Exacerbation? @ -[No] Poses a threat to life or bodily function? How? (Chest pain, [place], [place], pneumonia, PE, COPD, DKA, ARF, appy, cholecystitis, CVA, Diverticulitis, Homicidal, Suicidal, threat to staff... and all critical care pts) @ -[yes at risk for respiratory arrest] - Lab Data Result diagrams: 12/15/22 06:32 12/15/22 06:32 Lab Results 12/15/22 12/15/22 12/15/22 Range/Units 06:32 06:32 06:32 WBC 12.4 H (3.8-10.6) k/uL RBC 5.17 (3.80-5.40) m/uL Hgb 15.0 (11.4-16.0) gm/dL Hct 44.8 (34.0-46.0) % MCV 86.7 (80.0-100.0) fL MCH 29.0 (25.0-35.0) pg MCHC 33.5 (31.0-37.0) g/dL RDW 14.9 (11.5-15.5) % Plt Count 189 (150-450) k/uL MPV 8.0 Neutrophils % 91 % Lymphocytes % 6 % Monocytes % 1 % Eosinophils % 2 % Basophils % 0 % Neutrophils # 11.3 H (1.3-7.7) k/uL Lymphocytes # 0.8 L (1.0-4.8) k/uL Monocytes # 0.1 (0-1.0) k/uL Eosinophils # 0.2 (0-0.7) k/uL Basophils # 0.0 (0-0.2) k/uL Sodium 136 L (137-145) mmol/L Potassium 3.8 (3.5-5.1) mmol/L Chloride 104 (98-107) mmol/L Carbon Dioxide 19 L (22-30) mmol/L Anion Gap 13 mmol/L BUN 19 H (7-17) mg/dL Creatinine 0.68 (0.52-1.04) mg/dL Est GFR (CKD-EPI)AfAm >90 (>60 ml/min/1.73 sqM) Est GFR (CKD-EPI)NonAf 79 (>60 ml/min/1.73 sqM) Glucose 133 H (74-99) mg/dL Lactic Ac Sepsis Rflx Plasma Lactic Acid Yobany 3.4 H* (0.7-2.0) mmol/L Calcium 8.8 (8.4-10.2) mg/dL Total Bilirubin 1.0 (0.2-1.3) mg/dL AST 33 (14-36) U/L ALT 19 (4-34) U/L Alkaline Phosphatase 138 H (38-126) U/L Total Protein 7.3 (6.3-8.2) g/dL Albumin 4.0 (3.5-5.0) g/dL Urine Color Urine Appearance (Clear) Urine pH (5.0-8.0) Ur Specific Edison (1.001-1.035) Urine Protein (Negative) Urine Glucose (UA) (Negative) Urine Ketones (Negative) Urine Blood (Negative) Urine Nitrite (Negative) Urine Bilirubin (Negative) Urine Urobilinogen (<2.0) mg/dL Ur Leukocyte Esterase (Negative) Urine RBC (0-5) /hpf Urine WBC (0-5) /hpf Ur Squamous Epith Cells (0-4) /hpf Amorphous Sediment (None) /hpf Urine Bacteria (None) /hpf Influenza Type A (PCR) (Not Detectd) Influenza Type B (PCR) (Not Detectd) RSV (PCR) (Not Detectd) SARS-CoV-2 (PCR) (Not Detectd) 12/15/22 12/15/22 12/15/22 Range/Units 06:32 07:02 07:42 WBC (3.8-10.6) k/uL RBC (3.80-5.40) m/uL Hgb (11.4-16.0) gm/dL Hct (34.0-46.0) % MCV (80.0-100.0) fL MCH (25.0-35.0) pg MCHC (31.0-37.0) g/dL RDW (11.5-15.5) % Plt Count (150-450) k/uL MPV Neutrophils % % Lymphocytes % % Monocytes % % Eosinophils % % Basophils % % Neutrophils # (1.3-7.7) k/uL Lymphocytes # (1.0-4.8) k/uL Monocytes # (0-1.0) k/uL Eosinophils # (0-0.7) k/uL Basophils # (0-0.2) k/uL Sodium (137-145) mmol/L Potassium (3.5-5.1) mmol/L Chloride (98-107) mmol/L Carbon Dioxide (22-30) mmol/L Anion Gap mmol/L BUN (7-17) mg/dL Creatinine (0.52-1.04) mg/dL Est GFR (CKD-EPI)AfAm (>60 ml/min/1.73 sqM) Est GFR (CKD-EPI)NonAf (>60 ml/min/1.73 sqM) Glucose (74-99) mg/dL Lactic Ac Sepsis Rflx Y Plasma Lactic Acid Yobany (0.7-2.0) mmol/L Calcium (8.4-10.2) mg/dL Total Bilirubin (0.2-1.3) mg/dL AST (14-36) U/L ALT (4-34) U/L Alkaline Phosphatase (38-126) U/L Total Protein (6.3-8.2) g/dL Albumin (3.5-5.0) g/dL Urine Color Colorless Urine Appearance Cloudy H (Clear) Urine pH 7.0 (5.0-8.0) Ur Specific Edison 1.008 (1.001-1.035) Urine Protein 1+ H (Negative) Urine Glucose (UA) Negative (Negative) Urine Ketones Negative (Negative) Urine Blood Negative (Negative) Urine Nitrite Negative (Negative) Urine Bilirubin Negative (Negative) Urine Urobilinogen <2.0 (<2.0) mg/dL Ur Leukocyte Esterase Negative (Negative) Urine RBC 7 H (0-5) /hpf Urine WBC 1 (0-5) /hpf Ur Squamous Epith Cells <1 (0-4) /hpf Amorphous Sediment Rare H (None) /hpf Urine Bacteria Rare H (None) /hpf Influenza Type A (PCR) Not Detected (Not Detectd) Influenza Type B (PCR) Not Detected (Not Detectd) RSV (PCR) Not Detected (Not Detectd) SARS-CoV-2 (PCR) Not Detected (Not Detectd) Disposition Clinical Impression: Pneumonia Disposition: ADMITTED IP TO THIS [facility] Condition: Fair Time of Disposition: 08:41
[2022-12-15 06:44] LABS: Basophils % (A) 0 %; Eosinophils # (A) 0.2 k/uL (0-0.7); Eosinophils % (A) 2 %; HCT 44.8 % (34.0-46.0); Lymphocytes # (A) 0.8 k/uL (1.0-4.8); Lymphocytes % (A) 6 %; MCHC 33.5 g/dL (31.0-37.0); MCV 86.7 fL (80.0-100.0); Monocytes # (A) 0.1 k/uL (0-1.0); Monocytes % (A) 1 %; Neutrophils # (A) 11.3 k/uL (1.3-7.7); Neutrophils % (A) 91 %; Platelet Count 189 k/uL (150-450); RBC 5.17 m/uL (3.80-5.40); RDW 14.9 % (11.5-15.5); WBC 12.4 k/uL (3.8-10.6)
[2022-12-15 06:58] LABS: ALT 19 U/L (4-34); AST 33 U/L (14-36); African American GFR (CKD) >90 (>60 ml/min/1.73 sqM); Alkaline Phosphatase 138 U/L (38-126); Anion Gap 13 mmol/L; Blood Urea Nitrogen 19 mg/dL (7-17); Calcium 8.8 mg/dL (8.4-10.2); Carbon Dioxide 19 mmol/L (22-30); Chloride 104 mmol/L (98-107); Glucose 133 mg/dL (74-99); Non-African American GFR(CKD) 79 (>60 ml/min/1.73 sqM); Potassium 3.8 mmol/L (3.5-5.1); Sodium 136 mmol/L (137-145); Total Protein 7.3 g/dL (6.3-8.2)
--- NOTE | 2022-12-15 07:03 | XR ---
EXAMINATION TYPE: XR chest 2V DATE OF EXAM: 12/15/2022 6:57 AM COMPARISON: Chest radiographs from 06/19/2013 TECHNIQUE: XR chest 2V Frontal and lateral views of the chest. CLINICAL INDICATION:Female, 86 years old with history of abdominal pain; FINDINGS: Lungs/Pleura: Blunting of the left costophrenic angle. No pneumothorax or pleural effusion. Pulmonary vascularity: Unremarkable. Heart/mediastinum: Cardiomediastinal silhouette is enlarged and stable. Atherosclerotic calcificatio ns are seen in the aorta. Proximal aortic stent graft. Musculoskeletal: No acute osseous pathology. IMPRESSION: Cardiomegaly with small left pleural effusion. No overt pulmonary vascular congestion.
[2022-12-15 08:11] LABS: Amorphous Sediment,Urine Rare /hpf; Appearance,Urine Cloudy (Clear); Bacteria,Urine Rare /hpf; Bilirubin,Urine Negative (Negative); Blood,Urine Negative (Negative); Color,Urine Colorless; Glucose,Urine (UA) Negative (Negative); Ketones,Urine Negative (Negative); Leukocyte Esterase,Urine Negative (Negative); Nitrite,Urine Negative (Negative); Protein,Urine 1+ (Negative); RBC,Urine 7 /hpf (0-5); Specific Gravity,Urine 1.008 (1.001-1.035); Squamous Epithelial Cell,Urine <1 /hpf (0-4); Urobilinogen,Urine <2.0 mg/dL (<2.0); WBC,Urine 1 /hpf (0-5)
[2022-12-15] MEDS ORDERED: AZITHROMYCIN 500 MG in SODIUM CHLORIDE 0.9% 250 ML IVPB STA (08:39)
[2022-12-15] MEDS ORDERED: IPRATROPIUM-ALBUTEROL 3 ML NEB INHALATION PRN (08:42)
[2022-12-15] MEDS ORDERED: PNEUMONIA PROTOCOL UTILIZED 1 EACH MISC PO PRN (08:42)
[2022-12-15] MEDS: NON FORMULARY DRUG (Mirabegron [Myrbetriq] 50 MG Tab.Er.24h) PO SCH (10:51)
[2022-12-15] MEDS: MULTIVITAMINS, THERA 1 EACH TAB PO SCH (11:07)
[2022-12-15] MEDS: CLOPIDOGREL 75 MG TAB PO SCH (11:07)
[2022-12-15] MEDS: ASPIRIN 81 MG PO SCH (11:07)
[2022-12-15] MEDS: VIT A,C & E-LUTEIN-MINERALS 1 EACH TAB PO SCH (11:08)
[2022-12-15] MEDS: CHOLECALCIFEROL 25 MCG (1000 IU) TABLET PO SCH (11:08)
[2022-12-15] MEDS: METOPROLOL TARTRATE 25 MG TAB PO SCH (11:08)
[2022-12-15] MEDS: amLODIPine 10 MG TAB PO SCH (11:08)
[2022-12-15] MEDS: ATORVASTATIN 40 MG TAB PO SCH (11:11)
--- NOTE | 2022-12-15 15:00 | P.HPIM ---
History of Present Illness H&P Date: 12/15/22 Patient is a 86-year-old female with history of hypertension, dyslipidemia, coronary artery disease, severe aortic stenosis status post TAVR presenting with fever for 1 day. She claims that she was playing cards yesterday afternoon, this morning woke up at 3 AM with fevers, chills, myalgias and arthralgias. She denies any significant chest pain, shortness of breath, cough, rhinorrhea, ear pain, sore throat, urinary or bowel complaints. She denies any sick contacts or travel history. In the ED, temperature was 101, pulse 102, respiratory rate 20, blood pressure 187/77, saturating at 97% on room air. Chest x-ray independently interpreted, shows small left pleural effusion, blunting of CP angle on the left, no significant opacities. Laboratory workup shows WBC 12.4, sodium 136, bicarb 19, creatinine 0.68, lactate 3.4, urinalysis negative for nitrites and leukocyte est erase, respiratory viral panel was negative. Patient admitted for fever of unknown origin. Pertinent positives and negatives as discussed in HPI, a complete review of systems was performed and all other systems are negative. Patient seen and examined at bedside. Vital signs reviewed General: nontoxic, no distress, appears at stated age Derm: warm, dry Head: atraumatic, normocephalic, symmetric Eyes: EOMI, no lid lag, anicteric sclera, pupils equal round reactive to light ENT: Nose and ears atraumatic Neck: No thyromegaly, supple Mouth: no lip lesion, mucus membranes moist Cardiovascular: S1S2 reg, no murmur, no edema Lungs: clear to auscultation bilateral, no rhonchi, no rales, no wheeze, no accessory muscle use Abdominal: soft, nontender to palpation, no guarding, no appreciable o rganomegaly Ext: no gross muscle atrophy, muscle strength muscle strength 5 out of 5 in all 4 extremities, no contractures Neuro: CN II-XII grossly intact Psych: Alert, oriented, appropriate affect Assessment/Plan: Active: Sepsis, unclear source Fever of unknown origin Uncontrolled hypertension Lactic acidosis -Blood cultures, sputum cultures, procalcitonin ordered -legionella urine antigen pending -Was given a dose of IV azithromycin and IV ceftriaxone in the ED -Continue IV fluids -Possibly sepsis secondary to a viral syndrome given how quickly her symptoms progressed -Continue home oral antihypertensives Chronic: CAD Severe aortic stenosis status post TAVR Dyslipidemia Dyslipidemia The patient is admitted with an anticipated greater than 2 midnight stay as inpatient status for evaluation of sepsis. Surrogate decision-maker: Daughter CODE STATUS:DNR/DNI DVT prophylaxis: lovenox Anticipated discharge date: Pending clinical course Anticipated discharge place: Pending clinical course A total of 55 minutes was spent on the care of this complex patient more than 50% of the time was spent in counseling and care coordination. 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, alicia fundloplication, neck c1 to c6 surgery for stenosis, cataracts bilateral eyes, MANINDER Past Anesthesia/Blood Transfusion Reactions: No Reported Reaction Additional Past Anesthesia/Blood Transfusion Reaction / Comment(s): no problems w/ prior blood transfusion Past Psychological History: No Psychological Hx Reported Smoking Status: Never smoker - Past Family History Father Family Medical History: Cancer Brother(s) Family Medical History: Cancer Sister(s) Family Medical History: Cancer Medications and Allergies Home Medications Medication Instructions Recorded Confirmed Type amLODIPine BESYLATE [Norvasc] 10 mg PO DAILY 12/16/14 12/15/22 History Multivitamins, Thera [Multivitamin] 1 tab PO DAILY 12/23/15 12/15/22 History Vit C/E/Zn/Coppr/Lutein/Zeaxan 1 cap PO DAILY 01/01/20 12/15/22 History [Preservision Areds 2 Softgel] Aspirin [Adult Low Dose Aspirin EC] 81 mg PO DAILY 01/16/20 12/15/22 History Atorvastatin [Lipitor] 40 mg PO DIRECTED 01/16/20 12/15/22 History Metoprolol Tartrate 25 mg PO DAILY 01/16/20 12/15/22 History Cholecalciferol [Vitamin D3 (25 25 mcg PO DAILY 12/15/22 12/15/22 History Mcg = 1000 Iu)] Clopidogrel [Plavix] 75 mg PO DAILY 12/15/22 12/15/22 History Mirabegron [Myrbetriq] 50 mg PO DAILY 12/15/22 12/15/22 History Allergies Allergy/AdvReac Type Severity Reaction Status Date / Time citalopram [From Celexa] AdvReac chest Verified 12/15/22 08:27 tightness hydromorphone HCl AdvReac Hallucinati Verified 12/15/22 08:27 [From Dilaudid] ons Physical Exam Vitals: Vital Signs Temp Pulse Pulse Resp BP BP Pulse Ox 12/15/22 09:28 98.6 F 90 17 152/55 97 12/15/22 09:21 100.3 F H 90 20 135/61 97 12/15/22 08:34 101.1 F H 12/15/22 07:21 101.2 F H 77 18 124/65 95 12/15/22 06:14 101.0 F H 102 H 20 187/77 97 Intake and Output 12/14/22 12/15/22 12/15/22 22:59 06:59 14:59 Other: Weight 58.967 kg 58.967 kg Results CBC & Chem 7: 12/15/22 06:32 12/15/22 06:32 Labs: Abnormal Lab Results - Last 24 Hours (Table) 12/15/22 12/15/22 12/15/22 Range/Units 06:32 06:32 06:32 WBC 12.4 H (3.8-10.6) k/uL Neutrophils # 11.3 H (1.3-7.7) k/uL Lymphocytes # 0.8 L (1.0-4.8) k/uL Sodium 136 L (137-145) mmol/L Carbon Dioxide 19 L (22-30) mmol/L BUN 19 H (7-17) mg/dL Glucose 133 H (74-99) mg/dL Plasma Lactic Acid Yobany 3.4 H* (0.7-2.0) mmol/L Alkaline Phosphatase 138 H (38-126) U/L Urine Appearance (Clear) Urine Protein (Negative) Urine RBC (0-5) /hpf Amorphous Sediment (None) /hpf Urine Bacteria (None) /hpf 12/15/22 12/15/22 12/15/22 Range/Units 07:42 10:00 14:08 WBC (3.8-10.6) k/uL Neutrophils # (1.3-7.7) k/uL Lymphocytes # (1.0-4.8) k/uL Sodium (137-145) mmol/L Carbon Dioxide (22-30) mmol/L BUN (7-17) mg/dL Glucose (74-99) mg/dL Plasma Lactic Acid Yobany 2.2 H* 3.5 H* (0.7-2.0) mmol/L Alkaline Phosphatase (38-126) U/L Urine Appearance Cloudy H (Clear) Urine Protein 1+ H (Negative) Urine RBC 7 H (0-5) /hpf Amorphous Sediment Rare H (None) /hpf Urine Bacteria Rare H (None) /hpf Thrombosis Risk Factor Assmnt - Choose All That Apply Any of the Below Risk Factors Present?: Yes Each Factor Represents 1 point: Serious lung disease incl. pneumonia (< 1month) Other Risk Factors: Yes Each Risk Factor Represents 3 Points: Age 75 years or older Other congenital or acquired thrombophilia - If yes, enter type in comment: No Thrombosis Risk Factor Assessment Total Risk Factor Score: 4 Thrombosis Risk Factor Assessment Level: Moderate Risk
[2022-12-15] MEDS ORDERED: LACTATED RINGERS 1,000 ML IV ONE (15:30)
[2022-12-15] MEDS: LACTATED RINGERS 1,000 ML IV SCH (16:32)
[2022-12-15] MEDS: PIPERACILLIN-TAZOBACTAM 3.375 GM in SODIUM CHLORIDE 0.9% 100 ML IVPB SCH (16:42)
[2022-12-15 17:09] VITALS: BMI 18.6
[2022-12-16] MEDS: PIPERACILLIN-TAZOBACTAM 3.375 GM in SODIUM CHLORIDE 0.9% 100 ML IVPB SCH (00:17)
[2022-12-16] MEDS: LACTATED RINGERS 1,000 ML IV SCH ×3 (00:37→17:22)
--- NOTE | 2022-12-16 01:45 | P.PN ---
Progress Note - Text Progress Note Date: 12/16/22 Notified by the RN that the patient's blood cultures had a preliminary results of gram-positive cocci in clusters. Case was discussed with pharmacist on-call who noted that the results showed likely MSSA in both samples as no resistance genes were identified. Switch patient to Cefazolin. Infectious disease consulted. Echocardiogram ordered.
[2022-12-16] MEDS: ACETAMINOPHEN TAB 325 MG TAB PO PRN ×2 (05:03→16:17)
[2022-12-16 07:55] LABS: Basophils % (A) 0 %; Eosinophils # (A) 0.1 k/uL (0-0.7); Eosinophils % (A) 0 %; HCT 37.6 % (34.0-46.0); HGB 12.5 gm/dL (11.4-16.0); Lymphocytes # (A) 0.7 k/uL (1.0-4.8); Lymphocytes % (A) 4 %; MCH 29.2 pg (25.0-35.0); MCHC 33.4 g/dL (31.0-37.0); MCV 87.4 fL (80.0-100.0); Mean Platelet Volume 8.3; Monocytes % (A) 5 %; Neutrophils # (A) 17.3 k/uL (1.3-7.7); Neutrophils % (A) 90 %; Platelet Count 141 k/uL (150-450); RDW 15.2 % (11.5-15.5); WBC 19.3 k/uL (3.8-10.6)
[2022-12-16] MEDS: ATORVASTATIN 40 MG TAB PO SCH (08:22)
[2022-12-16] MEDS: CLOPIDOGREL 75 MG TAB PO SCH (08:22)
[2022-12-16] MEDS: METOPROLOL TARTRATE 25 MG TAB PO SCH (08:22)
[2022-12-16] MEDS: amLODIPine 10 MG TAB PO SCH (08:22)
[2022-12-16] MEDS: VIT A,C & E-LUTEIN-MINERALS 1 EACH TAB PO SCH (08:22)
[2022-12-16] MEDS: ASPIRIN 81 MG PO SCH (08:22)
[2022-12-16] MEDS: MULTIVITAMINS, THERA 1 EACH TAB PO SCH (08:22)
[2022-12-16] MEDS: CHOLECALCIFEROL 25 MCG (1000 IU) TABLET PO SCH (08:22)
[2022-12-16] MEDS: NON FORMULARY DRUG (Mirabegron [Myrbetriq] 50 MG Tab.Er.24h) PO SCH (08:23)
--- NOTE | 2022-12-16 08:24 | XR ---
EXAMINATION TYPE: XR chest 1V portable DATE OF EXAM: 12/16/2022 COMPARISON: 12/15/2022 HISTORY: Pneumonia TECHNIQUE: Single frontal view of the chest is obtained. FINDINGS: Improving left lower lobe infiltrate. Post aortic valve surgery. Heart size is mildly prom inent. Atherosclerotic change aorta. Biapical pleural thickening with no overt failure. Throughout the shoulder and diffuse osteopenia. Hy pertrophic degenerative changes of the spine. IMPRESSION: Improving left lower lobe infiltrate.
[2022-12-16 08:25] LABS: Large Platelets Present
[2022-12-16 08:31] LABS: ALT 21 U/L (4-34); AST 39 U/L (14-36); African American GFR (CKD) 47 (>60 ml/min/1.73 sqM); Albumin 2.5 g/dL (3.5-5.0); Alkaline Phosphatase 83 U/L (38-126); Anion Gap 7 mmol/L; Blood Urea Nitrogen 30 mg/dL (7-17); Calcium 7.5 mg/dL (8.4-10.2); Carbon Dioxide 19 mmol/L (22-30); Chloride 108 mmol/L (98-107); Globulin 2.6 g/dL; Glucose 87 mg/dL (74-99); Non-African American GFR(CKD) 41 (>60 ml/min/1.73 sqM); Potassium 3.9 mmol/L (3.5-5.1); Sodium 134 mmol/L (137-145); Total Bilirubin 0.7 mg/dL (0.2-1.3); Total Protein 5.1 g/dL (6.3-8.2)
[2022-12-16] MEDS: NAFCILLIN 2 GM in DEXTROSE 5% IN WATER 100 ML IVPB SCH ×8 (12:29→23:40)
--- NOTE | 2022-12-16 13:25 | P.PN ---
Subjective Progress Note Date: 12/16/22 Hospital Course: 86-year-old female with history of hypertension, dyslipidemia, coronary artery disease, severe aortic stenosis status post TAVR presenting with fever. In the ED, temperature was 101, pulse 102, respiratory rate 20, blood pressure 187/77, saturating at 97% on room air. Chest x-ray independently interpreted, shows small left pleural effusion, blunting of CP angle on the left, no significant opacities. Laboratory workup shows WBC 12.4, sodium 136, bicarb 19, creatinine 0.68, lactate 3.4, urinalysis negative for nitrites and leukocyte esterase, respiratory viral panel was negative. Patient admitted for fever of unknown origin. Overnight blood cultures came back positive for MSSA. Concern for endocarditis given previously replaced aortic valve. Echocardiogram pending. ID consulted. Subjective: Patient seen and examined at bedside. No acute events overnight. Claims that she is feeling a lot better, no more rigors. Pertinent positives and negatives as discussed above, a complete review of systems was performed and all other systems are negative. Vitals Signs Reviewed. General: nontoxic, no distress, appears at stated age Derm: warm, dry Head: atraumatic, normocephalic, symmetric Eyes: EOMI, no lid lag, anicteric sclera, pupils equal round reactive to light ENT: Nose and ears atraumatic Neck: No thyromegaly, supple Mouth: no lip lesion, mucus membranes moist Cardiovascular: S1S2 reg, systolic murmur, no edema Lungs: clear to auscultation bilateral, no rhonchi, no rales, no wheeze, no accessory muscle use Abdominal: soft, nontender to palpation, no guarding, no appreciable organomegaly Ext: no gross muscle atrophy, muscle strength muscle strength 5 out of 5 in all 4 extremities, no contractures Neuro: CN II-XII grossly intact Psych: Alert, oriented, appropriate affect Data Reviewed Today: Pertinent Labs: WBC 19.3, platelet 141, bicarb 19, BUN 30, creatinine 1.21 Imaging: Chest x-ray independently interpreted, shows improving left lower lobe opacity Assessment and Plan: Active: Sepsis secondary to MSSA bacteremia Hypertension Acute kidney injury, nonoliguric -ID following, continue nafcillin -Echocardiogram pending -Repeat blood cultures pending -Unclear source at the moment -Hold home antihypertensives -Continue lactated Ringer at 1 25 mL an hour -Renal ultrasound ordered Resolved: Lactic acidosis Chronic: CAD Severe aortic stenosis status post TAVR Dyslipidemia Dyslipidemia DVT ppx: Subcu heparin Code status: DNR/DNI Anticipated discharge place: Pending clinical course Anticipated discharge time: Pending clinical course Objective - Vital Signs Vital signs: Vital Signs Temp 99.0 F 12/16/22 07:21 Pulse 67 12/16/22 07:21 Resp 14 12/16/22 07:21 BP 94/52 12/16/22 07:21 Pulse Ox 96 12/16/22 07:21 FiO2 21 12/16/22 09:14 Intake & Output 12/15/22 12/16/22 12/16/22 18:59 06:59 18:59 Intake Total 1650 Balance 1650 Weight 58.967 kg Intake: Intake, IV Titration 1650 Amount Lactated Ringers 1,000 ml 1500 @ 125 mls/hr IV .Q8H [facility] Rx#:[id number] Piperacillin-Tazobactam 3 100 .375 gm In Sodium Chloride 0.9% 100 ml @ 25 mls/hr IVPB Q8HR [facility] Rx# :[id number] ceFAZolin 2 gm In Sodium 50 Chloride 0.9% 50 ml @ 100 mls/hr IVPB Q8HR [facility] Rx# :[id number] Other: # Voids 2 2 - Labs CBC & Chem 7: 12/16/22 06:38 12/16/22 06:38 Labs: Abnormal Lab Results - Last 24 Hours (Table) 12/15/22 12/15/22 12/16/22 Range/Units 14:08 21:19 06:38 WBC 19.3 H (3.8-10.6) k/uL Plt Count 141 L (150-450) k/uL Neutrophils # 17.3 H (1.3-7.7) k/uL Lymphocytes # 0.7 L (1.0-4.8) k/uL Sodium (137-145) mmol/L Chloride (98-107) mmol/L Carbon Dioxide (22-30) mmol/L BUN (7-17) mg/dL Creatinine (0.52-1.04) mg/dL Plasma Lactic Acid Yobany 3.5 H* 2.5 H* (0.7-2.0) mmol/L Calcium (8.4-10.2) mg/dL AST (14-36) U/L Total Protein (6.3-8.2) g/dL Albumin (3.5-5.0) g/dL 12/16/22 Range/Units 06:38 WBC (3.8-10.6) k/uL Plt Count (150-450) k/uL Neutrophils # (1.3-7.7) k/uL Lymphocytes # (1.0-4.8) k/uL Sodium 134 L (137-145) mmol/L Chloride 108 H (98-107) mmol/L Carbon Dioxide 19 L (22-30) mmol/L BUN 30 H (7-17) mg/dL Creatinine 1.21 H (0.52-1.04) mg/dL Plasma Lactic Acid Yobany (0.7-2.0) mmol/L Calcium 7.5 L (8.4-10.2) mg/dL AST 39 H (14-36) U/L Total Protein 5.1 L (6.3-8.2) g/dL Albumin 2.5 L (3.5-5.0) g/dL Microbiology - Last 24 Hours (Table) 12/15/22 10:19 Blood Culture Gram Stain - Preliminary Blood Blood Culture - Preliminary Presumptive Staph aureus 12/15/22 10:00 Blood Culture Gram Stain - Preliminary Blood Blood Culture - Preliminary Presumptive Staph aureus
[2022-12-16] MEDS: HEPARIN SODIUM,PORCINE 5,000 UNIT/ML 1 ML VIAL SQ SCH (16:17)
--- NOTE | 2022-12-16 17:25 | US ---
EXAMINATION TYPE: US renals and bladder DATE OF EXAM: 12/16/2022 COMPARISON: NONE CLINICAL INDICATION: Female, 86 years old with history of breanna; BREANNA EXAM MEASUREMENTS: Right Kidney: 10.5x4.2x4.1 cm Left Kidney: 9.7x4.9x4.4 cm Right Kidney: wnl Left Kidney: wnl Bladder: wnl Bilateral Jets seen: Yes There is no evidence for hydronephrosis at this point in time. No nephrolithiasis is seen. No bari s are identified. Cortical medullary differentiation is maintained. The urinary bladder is anechoic. Bilateral ureteral jets are seen. IMPRESSION: No hydronephrosis or nephrolithiasis.
--- NOTE | 2022-12-16 18:50 | CA ---
Transthoracic Echo Report Name: China Coreas Age: 86 Gender: F : 1935 Exam Date: 12/16/2022 09:32 Exam Location: [facility] Ht (in): 70 Wt (lb): 130 Ordering Physician: Gillian Cardona MD Attending/Referring Phys: Heat Treating Bluer Wong Powell Procedure CPT: Indications: rule out endocarditis Cardiac Hx: Technical Quality: Fair Contrast 1: Total Dose (mL): Contrast 2: Total Dose (mL): MEASUREMENTS (Male / Female) Normal Values 2D ECHO LV Diastolic Diameter PLAX 4.1 cm 4.2 - 5.9 / 3.9 - 5.3 cm LV Systolic Diameter PLAX 2.5 cm IVS Diastolic Thickness 1.5 cm 0.6 - 1.0 / 0.6 - 0.9 cm LVPW Diastolic Thickness 1.1 cm 0.6 - 1.0 / 0.6 - 0.9 cm LV Relative Wall Thickness 0.6 RV Internal Dim ED PLAX 3.3 cm LVOT Diameter 1.8 cm Aortic Root Diameter 2.5 cm LA Systolic Diameter LX 4.0 cm 3.0 - 4.0 / 2.7 - 3.8 cm LV Diastolic Volume MOD BP 38.7 cm??? 67 - 155 / 56 - 104 cm??? LV Systolic Volume MOD BP 17.3 cm??? 22 - 58 / 19 - 49 cm??? LV Ejection Fraction MOD BP 55.4 % >= 55 % LV Cardiac Index MOD BP 759.6 cm???/min???m??? LV Diastolic Volume MOD 4C 52.1 cm??? LV Systolic Volume MOD 4C 22.2 cm??? LV Ejection Fraction MOD 4C 57.3 % LV Cardiac Index MOD 4C 1056.3 cm???/min???m??? LV Diastolic Length 4C 6.1 cm LV Systolic Length 4C 6.1 cm LV Diastolic Volume MOD 2C 28.4 cm??? LV Systolic Volume MOD 2C 11.4 cm??? LV Ejection Fraction MOD 2C 60.0 % LV Cardiac Index MOD 2C 603.3 cm???/min???m??? LV Diastolic Length 2C 5.9 cm LV Systolic Length 2C 5.1 cm LA Volume 63.8 cm??? 18 - 58 / 22 - 52 cm??? DOPPLER AV Peak Velocity 270.5 cm/s AV Peak Gradient 29.3 mmHg AV Mean Velocity 191.2 cm/s AV Mean Gradient 16.5 mmHg AV Velocity Time Integral 63.9 cm AI Peak Velocity 257.8 cm/s AI Peak Gradient 26.6 mmHg AI Pressure Half Time 558.0 ms LVOT Peak Velocity 158.2 cm/s LVOT Peak Gradient 10.0 mmHg LVOT Velocity Time Integral 43.6 cm LVOT Stroke Volume 106.7 cm??? LVOT Stroke Volume Index 61.4 ml/m??? LVOT Cardiac Index 3777.7 cm???/min???m??? AV Area Cont Eq vti 1.7 cm??? AV Area Cont Eq pk 1.4 cm??? MV Peak Velocity 119.2 cm/s MV Peak Gradient 5.7 mmHg MV Mean Velocity 66.7 cm/s MV Mean Gradient 2.1 mmHg MV Velocity Time Integral 45.5 cm Mitral E Point Velocity 87.5 cm/s Mitral A Point Velocity 103.6 cm/s Mitral E to A Ratio 0.8 MV Deceleration Time 345.7 ms MV E' Velocity 3.4 cm/s Mitral E to MV E' Ratio 25.5 TR Peak Velocity 192.3 cm/s TR Peak Gradient 14.8 mmHg PV Peak Velocity 88.7 cm/s PV Peak Gradient 3.1 mmHg FINDINGS Left Ventricle Normal LV size .Mild concentric LVH with affinity to the basal septum. Left ventricular ejection fraction is estimated at 55-60 %. Right Ventricle Normal right ventricular size. Right Atrium Normal right atrial size. Left Atrium LA volume index= 37ml/m2 Mitral Valve Mitral thickening with mild to moderate posterior MAC. Aortic Valve HX TAVR. Mld to moderate AI. Tricuspid Valve Structurally normal tricuspid valve. Mild TR. Pulmonic Valve Pulmonic valve not well visualized. Trace pulmonic regurgitation. Pericardium There is a question of a small posterior pericardial effusion best seen in parasternal views. Aorta Normal size aortic root . CONCLUSIONS Normal LV systolic function. Mild concentric LVH. Mild mitral regurgitation Transcatheter valve with mild to moderate perivalvular leak Previewed by: Dr. Brando Rubin MD (Electronically Signed) Final Date: 16 December 2022 18:49
--- NOTE | 2022-12-16 21:11 | P.CONS ---
History of Present Illness - Reason for Consult Consult date: 12/16/22 - History of Present Illness Patient is a 86-year-old female with a past medical history significant for hypertension prediabetes to aortic wall stenosis in this patient who is s/p TAVR procedure about 3 years ago patient is now presenting to [facility] yesterday morning for evaluation of fever nausea and vomiting patient symptoms started the day the patient was brought into the hospital and mention she was doing well the night before patient started having feeling of rigors and chills feeling cold and did have a fever patient did have nausea but no vomiting patient denies any headache or URI symptoms no chest pain did have some shortness of breath but no cough or sputum production nausea but no vomiting no abdominal pain or any diarrhea with the symptoms the patient has been evaluated on presentation to the hospital patient did have a fever of 101.2 F last temperature this morning was 100.4 degrees for night patient was not significant tachycardic blood pressure borderline but no need for pressor support and the patient was not hypoxic patient did have a white count of 12.4 which is up from 19.3 today creatinine 0.6 8 repeat is 1.21 lactic acid was elevated urine has been negative influenza RSV and COVID testing was negative patient did have a chest x-ray cardiomegaly with small left effusion no overt pulmonary vascular congestion patient was empirically treated with Zosyn for the blood cultures coming positive with MSSA antibiotic was switched over to cefazolin infectious disease was consulted for further management of antibiotic therapy, patient currently do not have any open wound 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, alicia fundloplication, neck c1 to c6 surgery for stenosis, cataracts bilateral eyes, MANINDER Past Anesthesia/Blood Transfusion Reactions: No Reported Reaction Additional Past Anesthesia/Blood Transfusion Reaction / Comm: no problems w/ prior blood transfusion Past Psychological History: No Psychological Hx Reported Smoking Status: Never smoker - Past Family History Father Family Medical History: Cancer Brother(s) Family Medical History: Cancer Sister(s) Family Medical History: Cancer Medications and Allergies Home Medications Medication Instructions Recorded Confirmed Type amLODIPine BESYLATE [Norvasc] 10 mg PO DAILY 12/16/14 12/15/22 History Multivitamins, Thera [Multivitamin] 1 tab PO DAILY 12/23/15 12/15/22 History Vit C/E/Zn/Coppr/Lutein/Zeaxan 1 cap PO DAILY 01/01/20 12/15/22 History [Preservision Areds 2 Softgel] Aspirin [Adult Low Dose Aspirin EC] 81 mg PO DAILY 01/16/20 12/15/22 History Atorvastatin [Lipitor] 40 mg PO DIRECTED 01/16/20 12/15/22 History Metoprolol Tartrate 25 mg PO DAILY 01/16/20 12/15/22 History Cholecalciferol [Vitamin D3 (25 25 mcg PO DAILY 12/15/22 12/15/22 History Mcg = 1000 Iu)] Clopidogrel [Plavix] 75 mg PO DAILY 12/15/22 12/15/22 History Mirabegron [Myrbetriq] 50 mg PO DAILY 12/15/22 12/15/22 History Allergies Allergy/AdvReac Type Severity Reaction Status Date / Time citalopram [From Celexa] AdvReac chest Verified 12/15/22 08:27 tightness hydromorphone HCl AdvReac Hallucinati Verified 12/15/22 08:27 [From Dilaudid] ons Physical Exam Vitals: Vital Signs Temp Pulse Resp BP Pulse Ox FiO2 12/16/22 09:14 21 12/16/22 07:21 99.0 F 67 14 94/52 96 12/16/22 04:20 99.4 F 12/16/22 01:43 104/54 12/16/22 01:38 100.4 F H 75 16 91/43 96 12/15/22 20:00 99.1 F 70 16 114/59 97 12/15/22 14:00 98.7 F 79 16 93/55 95 Intake and Output 12/15/22 12/16/22 12/16/22 22:59 06:59 14:59 Intake Total 1650 Balance 1650 Intake: Intake, IV Titration 1650 Amount Lactated Ringers 1,000 ml 1500 @ 125 mls/hr IV .Q8H [facility] Rx#:[id number] Piperacillin-Tazobactam 3 100 .375 gm In Sodium Chloride 0.9% 100 ml @ 25 mls/hr IVPB Q8HR [facility] Rx# :[id number] ceFAZolin 2 gm In Sodium 50 Chloride 0.9% 50 ml @ 100 mls/hr IVPB Q8HR [facility] Rx# :[id number] Other: # Voids 2 2 Weight 58.967 kg Results CBC & Chem 7: 12/16/22 06:38 12/16/22 06:38 Labs: Abnormal Lab Results - Last 24 Hours (Table) 12/15/22 12/15/22 12/15/22 Range/Units 10:00 14:08 21:19 WBC (3.8-10.6) k/uL Plt Count (150-450) k/uL Neutrophils # (1.3-7.7) k/uL Lymphocytes # (1.0-4.8) k/uL Sodium (137-145) mmol/L Chloride (98-107) mmol/L Carbon Dioxide (22-30) mmol/L BUN (7-17) mg/dL Creatinine (0.52-1.04) mg/dL Plasma Lactic Acid Yobany 2.2 H* 3.5 H* 2.5 H* (0.7-2.0) mmol/L Calcium (8.4-10.2) mg/dL AST (14-36) U/L Total Protein (6.3-8.2) g/dL Albumin (3.5-5.0) g/dL 12/16/22 12/16/22 Range/Units 06:38 06:38 WBC 19.3 H (3.8-10.6) k/uL Plt Count 141 L (150-450) k/uL Neutrophils # 17.3 H (1.3-7.7) k/uL Lymphocytes # 0.7 L (1.0-4.8) k/uL Sodium 134 L (137-145) mmol/L Chloride 108 H (98-107) mmol/L Carbon Dioxide 19 L (22-30) mmol/L BUN 30 H (7-17) mg/dL Creatinine 1.21 H (0.52-1.04) mg/dL Plasma Lactic Acid Yobany (0.7-2.0) mmol/L Calcium 7.5 L (8.4-10.2) mg/dL AST 39 H (14-36) U/L Total Protein 5.1 L (6.3-8.2) g/dL Albumin 2.5 L (3.5-5.0) g/dL Microbiology - Last 24 Hours (Table) 12/15/22 10:19 Blood Culture Gram Stain - Preliminary Blood Blood Culture - Preliminary Presumptive Staph aureus 12/15/22 10:00 Blood Culture Gram Stain - Preliminary Blood Blood Culture - Preliminary Presumptive Staph aureus Assessment and Plan Plan: 1patient with MSSA bacteremia in this patient was in the hospital with fever rigors and chills patient currently do not have obvious localizing focus of infection chest x-ray reported negative for any pneumonia urine has been negative abdominal soft on Examination no evidence of any cellulitis joint swelling or open wound in this patient who do have history of aortic stenosis s/p TAVR position concerning for possible endocarditis. 2blood cultures were repeated today to document clearance of bacteremia. 3check inflammatory markers. And await echocardiogram to be completed 4discontinue cefazolin start patient Naficillin 2 g every 4 hours daughter at the bedside multiple questions concern for nausea and hematoma We will follow on clinical condition and cultures to further adjust medication if needed Thank you for this consultation we will follow the patient along with you Dictation was produced using [employer] dictation software. please excuse any grammatical, word or spelling errors.
[2022-12-17] MEDS: LACTATED RINGERS 1,000 ML IV SCH ×4 (00:05→23:37)
[2022-12-17] MEDS: ACETAMINOPHEN TAB 325 MG TAB PO PRN (00:51)
[2022-12-17] MEDS: HEPARIN SODIUM,PORCINE 5,000 UNIT/ML 1 ML VIAL SQ SCH ×4 (00:58→23:33)
[2022-12-17] MEDS: NAFCILLIN 2 GM in DEXTROSE 5% IN WATER 100 ML IVPB SCH ×12 (03:54→23:33)
[2022-12-17 08:07] LABS: Basophils % (A) 0 %; Eosinophils # (A) 0.1 k/uL (0-0.7); Eosinophils % (A) 1 %; HCT 39.2 % (34.0-46.0); Lymphocytes # (A) 1.7 k/uL (1.0-4.8); Lymphocytes % (A) 15 %; MCH 29.1 pg (25.0-35.0); MCHC 33.1 g/dL (31.0-37.0); MCV 87.8 fL (80.0-100.0); Mean Platelet Volume 9.3; Monocytes # (A) 0.6 k/uL (0-1.0); Monocytes % (A) 6 %; Neutrophils # (A) 8.9 k/uL (1.3-7.7); Neutrophils % (A) 77 %; Platelet Count 132 k/uL (150-450); RBC 4.46 m/uL (3.80-5.40); RDW 15.3 % (11.5-15.5); WBC 11.6 k/uL (3.8-10.6)
[2022-12-17 08:41] LABS: ALT 17 U/L (4-34); AST 36 U/L (14-36); African American GFR (CKD) 67 (>60 ml/min/1.73 sqM); Albumin 2.7 g/dL (3.5-5.0); Alkaline Phosphatase 112 U/L (38-126); Anion Gap 5 mmol/L; Blood Urea Nitrogen 22 mg/dL (7-17); Calcium 8.1 mg/dL (8.4-10.2); Carbon Dioxide 24 mmol/L (22-30); Chloride 111 mmol/L (98-107); Globulin 2.7 g/dL; Glucose 88 mg/dL (74-99); Non-African American GFR(CKD) 59 (>60 ml/min/1.73 sqM); Potassium 3.4 mmol/L (3.5-5.1); Sodium 140 mmol/L (137-145); Total Bilirubin 0.9 mg/dL (0.2-1.3); Total Protein 5.4 g/dL (6.3-8.2)
[2022-12-17] MEDS ORDERED: POTASSIUM CHLORIDE ER 20 MEQ TAB.ER PO STA (08:54)
[2022-12-17] MEDS: CLOPIDOGREL 75 MG TAB PO SCH (08:57)
[2022-12-17] MEDS: VIT A,C & E-LUTEIN-MINERALS 1 EACH TAB PO SCH (08:57)
[2022-12-17] MEDS: METOPROLOL TARTRATE 25 MG TAB PO SCH (08:57)
[2022-12-17] MEDS: MULTIVITAMINS, THERA 1 EACH TAB PO SCH (08:57)
[2022-12-17] MEDS: ASPIRIN 81 MG PO SCH (08:57)
[2022-12-17] MEDS: CHOLECALCIFEROL 25 MCG (1000 IU) TABLET PO SCH (08:58)
[2022-12-17] MEDS: ATORVASTATIN 40 MG TAB PO SCH (08:58)
[2022-12-17] MEDS: NON FORMULARY DRUG (Mirabegron [Myrbetriq] 50 MG Tab.Er.24h) PO SCH (09:04)
[2022-12-17] MEDS ORDERED: ARTIFICIAL TEARS-HYPROMELLOSE DROPS 15 ML BTL BOTH EYES PRN (13:35)
[2022-12-17] MEDS: KETOTIFEN 0.025% OPHTH DROPS 5 ML BTL BOTH EYES SCH ×3 (14:39→23:36)
--- NOTE | 2022-12-17 16:59 | P.PN ---
Subjective Progress Note Date: 12/17/22 (delayed charting seen at 1226) Patient is a 86-year-old female with hypertension, dyslipidemia, coronary artery disease, aortic stenosis status post Jarrod who presented to the ER with com plaints of fever. On arrival to the ER her temperature was 101, pulse 102, and blood pressure 187/77 the remainder of her vitals are within normal limits. Chest x-ray shows possible left lateral pleural effusion. Urinalysis is remarkable for white blood cell count 12.4, sodium 136, bicarb 19, lactic acid of 3.4. Urinalysis and respiratory bile viral panels were negative. Patient was admitted for fever of unknown origin. She received doses of Zithromax and Rocephin in the ER. Blood cultures were obtained and came back with staph aureus in 2 out of 2. She underwent an echocardiogram which demonstrated ejection fraction 55-60%, mild to moderate perivalvular leak at the aortic valve and mild concentric LVH. She underwent renal ultrasound which showed no hydronephrosis or nephrolithiasis. Infectious disease was consulted. They recommended transesophageal echo. Patient seen and examined at bedside with daughter present. She is complaining of bilateral eye itching. She does have issues with dry at home and sometimes takes [id number] eyedrops. She denies any purulent drainage. She denies any visual changes. She states she did have some nausea prior to presentation but never had any vomiting or abdominal pain. She denies any shortness of breath. Vital signs reviewed General: nontoxic, no distress, appears at stated age Eyes: Bilateral periorbital redness with conjunctival injection or without signs of purulent drainage or yellowing crust Cardiovascular: S1S2 reg, no murmur, positive posterior tibial pulse bilateral, Lungs: Decreased bs bilateral, no rhonchi, no rales , no accessory muscle use Abdominal: soft, nontender to palpation, no guarding, no appreciable organomegaly Ext: no gross muscle atrophy, no edema b/l lower extremities, no contractures Neuro: CN II-XI grossly intact, no focal neuro deficits Psych: Alert, oriented, appropriate affect Assessment/Plan: Staph aureus bacteremia without known etiology - ID note reviewed - Naficillin 2g IVPB q4 hours HTN, CAD, HLD -Lopressor 25 mg daily, Plavix 75 mg daily, Lipitor 40 mg daily, aspirin 81 mg daily ALLERGIC conjunctivitis -Artificial tears 4 times daily as needed - Ketotifen eyedrops 1 drop twice daily both eyes BREANNA, resolved Imaging: renal ultrasound -no hydronephrosis or nephrolithiasis. echocardiogram - ejection fraction 55-60%, mild to moderate perivalvular leak at the aortic valve and mild concentric LVH Data Review: Vitals reviewed in an afebrile for the last 24 hours. Pulse 71, respirations 16, blood pressure 138/67, O2 sat 94% on room air DVT prophylaxis: Heparin Discussed with: Patient, nursing Anticipated discharge date: pending clinical course Anticipated discharge place: pending clinical course This dictation was prepared using [employer] voice recognition software. Though every attempt is made to correct errors during dictation some may still exist. Objective - Vital Signs Vital signs: Vital Signs Temp 98.3 F 12/17/22 14:30 Pulse 57 L 12/17/22 14:30 Resp 18 12/17/22 14:30 BP 156/73 12/17/22 14:30 Pulse Ox 97 12/17/22 14:30 FiO2 21 12/16/22 09:14 Intake & Output 12/16/22 12/17/22 12/17/22 18:59 06:59 18:59 Intake Total 1940 1100 Balance 1940 1100 Intake: Intake, IV Titration 1700 1100 Amount Lactated Ringers 1,000 ml 1500 1000 @ 125 mls/hr IV .Q8H [facility] Rx#:[id number] Nafcillin 2 gm In 200 100 Dextrose 5% in Water 100 ml @ 50 mls/hr IVPB Q4HR [facility] Rx#:[id number] Oral 240 Other: # Voids 4 4 - Labs CBC & Chem 7: 12/17/22 07:11 12/17/22 07:11 Labs: Abnormal Lab Results - Last 24 Hours (Table) 12/17/22 12/17/22 Range/Units 07:11 07:11 WBC 11.6 H (3.8-10.6) k/uL Plt Count 132 L (150-450) k/uL Neutrophils # 8.9 H (1.3-7.7) k/uL Potassium 3.4 L (3.5-5.1) mmol/L Chloride 111 H (98-107) mmol/L BUN 22 H (7-17) mg/dL Calcium 8.1 L (8.4-10.2) mg/dL Total Protein 5.4 L (6.3-8.2) g/dL Albumin 2.7 L (3.5-5.0) g/dL Microbiology - Last 24 Hours (Table) 12/15/22 10:19 Blood Culture Gram Stain - Final Blood Blood Culture - Final Staphylococcus aureus 12/15/22 10:00 Blood Culture Gram Stain - Final Blood Blood Culture - Final Staphylococcus aureus
--- NOTE | 2022-12-17 21:50 | P.PN ---
Subjective Progress Note Date: 12/17/22 Principal diagnosis: MSSA Bacteremia Patient is a 86-year-old female with a past medical history significant for hypertension prediabetes to aortic wall stenosis in this patient who is s/p TAVR procedure about 3 years ago patient is now presenting to [facility] for evaluation of fever nausea and vomiting, patient was noted to have positive blood culture with MSSA. On today's evaluation that is 12/17/2022, the patient denies having any fever or any chills patient is breathing comfortably has been complaining of some itching eyes no chest pain shortness with cough no abdominal pain vomiting diarrhea. The patient white count is down to 11.6 creatinine 0.89 blood culture with MSSA echocardiogram with some perivalvular leakage did not mention any vegetation Objective - Vital Signs Vital signs: Vital Signs Temp 97.7 F 12/17/22 07:01 Pulse 71 12/17/22 07:01 Resp 16 12/17/22 07:01 BP 138/67 12/17/22 07:01 Pulse Ox 94 L 12/17/22 07:01 FiO2 21 12/16/22 09:14 Intake & Output 12/16/22 12/17/22 12/17/22 18:59 06:59 18:59 Intake Total 1940 1100 Balance 1940 1100 Intake: Intake, IV Titration 1700 1100 Amount Lactated Ringers 1,000 ml 1500 1000 @ 125 mls/hr IV .Q8H [facility] Rx#:[id number] Nafcillin 2 gm In 200 100 Dextrose 5% in Water 100 ml @ 50 mls/hr IVPB Q4HR [facility] Rx#:[id number] Oral 240 Other: # Voids 4 4 - Exam GENERAL DESCRIPTION: Elderly female lying in bed in no distress RESPIRATORY SYSTEM: Unlabored breathing , decreased breath sounds at bases HEART: S1 S2 regular rate and rhythm , loud murmur ABDOMEN: Soft , no tenderness EXTREMITIES: No edema feet - Labs CBC & Chem 7: 12/17/22 07:11 12/17/22 07:11 Labs: Abnormal Lab Results - Last 24 Hours (Table) 12/17/22 12/17/22 Range/Units 07:11 07:11 WBC 11.6 H (3.8-10.6) k/uL Plt Count 132 L (150-450) k/uL Neutrophils # 8.9 H (1.3-7.7) k/uL Potassium 3.4 L (3.5-5.1) mmol/L Chloride 111 H (98-107) mmol/L BUN 22 H (7-17) mg/dL Calcium 8.1 L (8.4-10.2) mg/dL Total Protein 5.4 L (6.3-8.2) g/dL Albumin 2.7 L (3.5-5.0) g/dL Microbiology - Last 24 Hours (Table) 12/15/22 10:19 Blood Culture Gram Stain - Preliminary Blood Blood Culture - Preliminary Presumptive Staph aureus 12/15/22 10:00 Blood Culture Gram Stain - Preliminary Blood Blood Culture - Preliminary Presumptive Staph aureus Assessment and Plan (1) Bacteremia due to methicillin susceptible Staphylococcus aureus (MSSA) Current Visit: Yes Status: Acute Code(s): R78.81 - BACTEREMIA; B95.61 - METHICILLIN SUSCEP STAPH INFCT CAUSING DIS CLASSD ELSWHR SNOMED Code(s): 760601921 Plan: 1patient with MSSA bacteremia in this patient was in the hospital with fever rigors and chills patient currently do not have obvious localizing focus of infection chest x-ray reported negative for any pneumonia urine has been negative abdominal soft on Examination no evidence of any cellulitis joint swelling or open wound in this patient who do have history of aortic stenosis s/p TAVR position concerning for possible endocarditis. 2blood cultures repeated to document clearance of bacteremia. 3echocardiogram did not show any vegetation did show some perivalvular leakage patient benefit from a MANINDER for better definition of her aortic valve. 4patient to continue Naficillin and monitor clinical course closely Dictation was produced using [employer] dictation software. please excuse any grammatical, word or spelling errors.
[2022-12-18] MEDS: NAFCILLIN 2 GM in DEXTROSE 5% IN WATER 100 ML IVPB SCH ×10 (04:00→20:02)
[2022-12-18] MEDS: LACTATED RINGERS 1,000 ML IV SCH ×2 (08:12→11:13)
[2022-12-18] MEDS: ASPIRIN 81 MG PO SCH (08:13)
[2022-12-18] MEDS: CLOPIDOGREL 75 MG TAB PO SCH (08:13)
[2022-12-18] MEDS: KETOTIFEN 0.025% OPHTH DROPS 5 ML BTL BOTH EYES SCH ×2 (08:13→20:05)
[2022-12-18] MEDS: METOPROLOL TARTRATE 25 MG TAB PO SCH (08:13)
[2022-12-18] MEDS: CHOLECALCIFEROL 25 MCG (1000 IU) TABLET PO SCH (08:13)
[2022-12-18] MEDS: MULTIVITAMINS, THERA 1 EACH TAB PO SCH (08:13)
[2022-12-18] MEDS: ATORVASTATIN 40 MG TAB PO SCH (08:13)
[2022-12-18] MEDS: HEPARIN SODIUM,PORCINE 5,000 UNIT/ML 1 ML VIAL SQ SCH ×2 (08:13→16:38)
[2022-12-18] MEDS: NON FORMULARY DRUG (Mirabegron [Myrbetriq] 50 MG Tab.Er.24h) PO SCH (08:14)
[2022-12-18] MEDS: VIT A,C & E-LUTEIN-MINERALS 1 EACH TAB PO SCH (08:14)
[2022-12-18 08:47] LABS: HCT 39.6 % (34.0-46.0); HGB 12.7 gm/dL (11.4-16.0); Hypochromasia Slight; MCH 28.8 pg (25.0-35.0); MCHC 32.2 g/dL (31.0-37.0); MCV 89.5 fL (80.0-100.0); Platelet Count 145 k/uL (150-450); RBC 4.42 m/uL (3.80-5.40); RDW 15.4 % (11.5-15.5); WBC 8.2 k/uL (3.8-10.6)
[2022-12-18 09:23] LABS: African American GFR (CKD) 77 (>60 ml/min/1.73 sqM); Anion Gap 5 mmol/L; Blood Urea Nitrogen 16 mg/dL (7-17); Calcium 8.1 mg/dL (8.4-10.2); Carbon Dioxide 24 mmol/L (22-30); Chloride 109 mmol/L (98-107); Glucose 86 mg/dL (74-99); Non-African American GFR(CKD) 67 (>60 ml/min/1.73 sqM); Sodium 138 mmol/L (137-145)
[2022-12-18 09:31] LABS: Potassium 3.7 mmol/L (3.5-5.1)
--- NOTE | 2022-12-18 11:39 | P.CRDCN ---
History of Present Illness Consult date: 12/18/22 Requesting physician: Britta Rivera Reason for Consult (text): MANINDER Chief complaint: Fever, chills, nausea History of present illness: A pleasant 86-year-old female patient who follows in the office with Dr. Felder. She is a history of CAD with prior orbital arthrectomy, angioplasty and stenting of the proximal to mid LAD in 2019 with subsequent TAVR at [facility] in 2019. Presented to the emergency department with fever, chills, rigors and nausea at home. Up until that time she bent her usual state of health. She did have a toothache a week or so ago. There's been no clear source of infection found. Blood cultures were positive for MSSA. Cardiogram with Doppler study sh owed normal LV systolic function with transcatheter valve with mild to moderate perivalvular leak. We were asked to the patient in consultation for possible MANINDER to evaluate for possible endocarditis. She is being followed by infectious disease and currently on nafcillin. His been afebrile over the last 2 days. Blood pressure is elevated but stable heart rate is stable. Overall she's feeling better. Denies any further nausea chills or rigor. She denies any shortness of breath or edema. She's had no chest discomfort. She's had no orthopnea or PND. 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, alicia fundloplication, neck c1 to c6 surgery for stenosis, cataracts bilateral eyes, MANINDER Past Anesthesia/Blood Transfusion Reactions: No Reported Reaction Additional Past Anesthesia/Blood Transfusion Reaction / Comment(s): no problems w/ prior blood transfusion Past Psychological History: No Psychological Hx Reported Smoking Status: Never smoker - Past Family History Father Family Medical History: Cancer Brother(s) Family Medical History: Cancer Sister(s) Family Medical History: Cancer Medications and Allergies Home Medications Medication Instructions Recorded Confirmed Type amLODIPine BESYLATE [Norvasc] 10 mg PO DAILY 12/16/14 12/15/22 History Multivitamins, Thera [Multivitamin] 1 tab PO DAILY 12/23/15 12/15/22 History Vit C/E/Zn/Coppr/Lutein/Zeaxan 1 cap PO DAILY 01/01/20 12/15/22 History [Preservision Areds 2 Softgel] Aspirin [Adult Low Dose Aspirin EC] 81 mg PO DAILY 01/16/20 12/15/22 History Atorvastatin [Lipitor] 40 mg PO DIRECTED 01/16/20 12/15/22 History Metoprolol Tartrate 25 mg PO DAILY 01/16/20 12/15/22 History Cholecalciferol [Vitamin D3 (25 25 mcg PO DAILY 12/15/22 12/15/22 History Mcg = 1000 Iu)] Clopidogrel [Plavix] 75 mg PO DAILY 12/15/22 12/15/22 History Mirabegron [Myrbetriq] 50 mg PO DAILY 12/15/22 12/15/22 History Allergies Allergy/AdvReac Type Severity Reaction Status Date / Time citalopram [From Celexa] AdvReac chest Verified 12/15/22 08:27 tightness hydromorphone HCl AdvReac Hallucinati Verified 12/15/22 08:27 [From Dilaudid] ons Physical Exam Vitals: Vital Signs Temp Pulse Resp BP Pulse Ox 12/18/22 08:10 96 12/18/22 08:00 98.4 F 62 17 163/67 98 12/18/22 01:57 98.9 F 76 16 145/85 96 12/17/22 19:31 99.0 F 66 16 173/75 97 12/17/22 14:30 98.3 F 57 L 18 156/73 97 Intake and Output 12/17/22 12/18/22 12/18/22 22:59 06:59 14:59 Intake Total 2280 Balance 2280 Intake: Intake, IV Titration 1800 Amount Lactated Ringers 1,000 ml 1500 @ 125 mls/hr IV .Q8H [facility] Rx#:[id number] Nafcillin 2 gm In 300 Dextrose 5% in Water 100 ml @ 50 mls/hr IVPB Q4HR [facility] Rx#:[id number] Oral 480 Other: # Voids 5 PHYSICAL EXAMINATION: This is a 86-year-old female in no apparent distress at the time of my examination. HEENT: Head is atraumatic, normocephalic. Pupils are equal, round. Sclerae anicteric. Conjunctivae are clear. Mucous membranes of the mouth are moist. Neck is supple. There is no elevated jugular venous pressure. No carotid bruit is heard. CHEST EXAMINATION: Clear to auscultation bilaterally. No wheezes rales or rhonchi. Respirations even and nonlabored. HEART EXAMINATION: Heart regular, positive S1 and S2. No S3. No S4. Grade 2/6 systolic ejection murmur at the base. ABDOMEN: Soft, nontender. Bowel sounds are heard. No organomegaly noted. EXTREMITIES: 2+ peripheral pulses with no evidence of peripheral edema and no calf tenderness noted. NEUROLOGIC EXAMINATION: Patient is awake, alert and oriented x3. Results 12/18/22 07:34 12/18/22 07:34 CBC 12/18/22 Range/Units 07:34 WBC 8.2 (3.8-10.6) k/uL RBC 4.42 (3.80-5.40) m/uL Hgb 12.7 (11.4-16.0) gm/dL Hct 39.6 (34.0-46.0) % Plt Count 145 L (150-450) k/uL Comprehensive Metabolic Panel 12/18/22 Range/Units 07:34 Sodium 138 (137-145) mmol/L Potassium 3.7 (3.5-5.1) mmol/L Chloride 109 H (98-107) mmol/L Carbon Dioxide 24 (22-30) mmol/L BUN 16 (7-17) mg/dL Creatinine 0.80 (0.52-1.04) mg/dL Glucose 86 (74-99) mg/dL Calcium 8.1 L (8.4-10.2) mg/dL Current Medications Generic Name Dose Route Start Last Admin Trade Name Freq PRN Reason Stop Dose Admin Acetaminophen 650 mg 12/15/22 08:42 12/17/22 00:51 Acetaminophen Tab 325 Mg Tab PO 650 mg Q4HR PRN Administration Fever and/ or Pain Albuterol/Ipratropium 3 ml 12/15/22 08:42 Ipratropium-Albuterol 3 Ml Neb INHALATION RT-Q4H PRN shortness of breath Artificial Tears 2 drops 12/17/22 13:35 Artificial Tears-Hypromellose Drops 15 Ml Btl BOTH EYES QID PRN Dry Eye(s) Aspirin 81 mg 12/15/22 09:00 12/18/22 08:13 Aspirin 81 Mg PO 81 mg DAILY [facility] Administration Atorvastatin Calcium 40 mg 12/15/22 11:00 12/18/22 08:13 Atorvastatin 40 Mg Tab PO 40 mg DAILY [facility] Administration Cholecalciferol 25 mcg 12/15/22 09:00 12/18/22 08:13 Cholecalciferol 25 Mcg (1000 Iu) Tablet PO 25 mcg DAILY [facility] Administration Clopidogrel Bisulfate 75 mg 12/15/22 09:00 12/18/22 08:13 Clopidogrel 75 Mg Tab PO 75 mg DAILY [facility] Administration Heparin Sodium (Porcine) 5,000 unit 12/16/22 16:00 12/18/22 08:13 Heparin Sodium,Porcine 5,000 Unit/Ml 1 Ml Vial SQ 5,000 unit Q8HR [facility] Administration Lactated Ringer's 1,000 mls @ 125 mls/hr 12/15/22 15:00 12/18/22 11:13 Lactated Ringers IV 125 mls/hr .Q8H [facility] Administration Nafcillin Sodium 2 gm/ 100 mls @ 50 mls/hr 12/16/22 12:00 12/18/22 11:12 Dextrose/Water IVPB 50 mls/hr Q4HR [facility] Administration Protocol Ketotifen Fumarate 1 drops 12/17/22 13:45 12/18/22 08:13 Ketotifen 0.025% Ophth Drops 5 Ml Btl BOTH EYES 1 drops BID [facility] Administration Metoprolol Tartrate 25 mg 12/15/22 09:00 12/18/22 08:13 Metoprolol Tartrate 25 Mg Tab PO 25 mg DAILY [facility] Administration Miscellaneous Information 1 each 12/15/22 08:42 Pneumonia Protocol Utilized 1 Each Misc PO ONCE PRN Per Protocol Multivitamins 1 each 12/15/22 09:00 12/18/22 08:13 Multivitamins, Thera 1 Each Tab PO 1 each DAILY [facility] Administration Multivitamins/Minerals 1 each 12/15/22 09:00 12/18/22 08:14 Vit A,C & F-Fwozgv-Rfotdrcv 1 Each Tab PO 1 each DAILY [facility] Administration Non-Formulary Medication 50 mg 12/15/22 09:00 12/18/22 08:14 Mirabegron [Myrbetriq] PO Not Given DAILY [facility] Intake and Output 12/17/22 12/18/22 12/18/22 22:59 06:59 14:59 Intake Total 2280 Balance 2280 Intake: Intake, IV Titration 1800 Amount Lactated Ringers 1,000 ml 1500 @ 125 mls/hr IV .Q8H [facility] Rx#:[id number] Nafcillin 2 gm In 300 Dextrose 5% in Water 100 ml @ 50 mls/hr IVPB Q4HR [facility] Rx#:[id number] Oral 480 Other: # Voids 5 12/18/22 07:34 12/18/22 07:34 Assessment and Plan Assessment: #1 bacteremia of unclear etiology #2 history of TAVR mild to moderate perivalvular leak #3 history of CAD with prior orbital arthrectomy, angioplasty and stenting of the proximal to mid LAD #4 hypertension #5 hyperlipidemia Plan: [facility] Cardiology's perspective we agree with recommendations from infectious disease. We will keep patient nothing by mouth after midnight. We'll schedule the patient for MANINDER to be done tomorrow with Dr. Moreno. Rationale, risks and benefits were discussed with the patient. Further recommendations to follow depending on the findings. RD MECHANICAL ENGINEER note has been reviewed, I agree with a documented findings and plan of care. Patient was seen and examined.
--- NOTE | 2022-12-18 14:42 | P.PN ---
Subjective Progress Note Date: 12/18/22 (delayed charting seen at 1045) Patient is a 86-year-old female with hypertension, dyslipidemia, coronary artery disease, aortic stenosis status post Jarrod who presented to the ER with com plaints of fever. On arrival to the ER her temperature was 101, pulse 102, and blood pressure 187/77 the remainder of her vitals are within normal limits. Chest x-ray shows possible left lateral pleural effusion. Urinalysis is remarkable for white blood cell count 12.4, sodium 136, bicarb 19, lactic acid of 3.4. Urinalysis and respiratory bile viral panels were negative. Patient was admitted for fever of unknown origin. She received doses of Zithromax and Rocephin in the ER. Blood cultures were obtained and came back with staph aureus in 2 out of 2. She underwent an echocardiogram which demonstrated ejection fraction 55-60%, mild to moderate perivalvular leak at the aortic valve and mild concentric LVH. She underwent renal ultrasound which showed no hydronephrosis or nephrolithiasis. Infectious disease was consulted. They recommended transesophageal echo and cardio was consulted. Patient seen and examined at bedside. She continues to have some eye irritation, she denies any purulent drainage. She states that the very itchy. She denies any chest pain or shortness of breath. She has had 2 loose bowel movements but not liquid today. She has no other complaints currently. She has lots of questions about PICC line which were answered and explained. Vital signs reviewed General: nontoxic, no distress, appears at stated age Eyes: Bilateral periorbital redness with conjunctival injection or without signs of purulent drainage or yellowing crust Cardiovascular: S1S2 reg, no murmur, positive posterior tibial pulse bilateral, Lungs: Decreased bs bilateral, no rhonchi, no rales , no accessory muscle use Abdominal: soft, nontender to palpation, no guarding, no appreciable organomegaly Ext: no gross muscle atrophy, no edema b/l lower extremities, no contractures Neuro: CN II-XI grossly intact, no focal neuro deficits Psych: Alert, oriented, appropriate affect Assessment/Plan: Staph aureus bacteremia without known etiology - ID note reviewed: MANINDER, nafcillin - Naficillin 2g IVPB q4 hours - add lactobaclilus 1 capsule 4 times daily - consult cardio for MANINDER: note reviewed and plan is for MANINDER in AM HTN, accelerated CAD, HLD -Lopressor 25 mg daily, Plavix 75 mg daily, Lipitor 40 mg daily, aspirin 81 mg daily - resume norvasc 10 mg daily ALLERGIC conjunctivitis -Artificial tears 4 times daily as needed - Ketotifen eyedrops 1 drop twice daily both eyes BREANNA, resolved Imaging: renal ultrasound -no hydronephrosis or nephrolithiasis. echocardiogram - ejection fraction 55-60%, mild to moderate perivalvular leak at the aortic valve and mild concentric LVH Data Review: Vitals reviewed and patient afebrile for the last 24 hours. Pulse 62, respirations 17, blood pressure 163/67, O2 sat 98% on room air Labs reviewed and remarkable for platelets 145, Chloride 109 DVT prophylaxis: Heparin Discussed with: Patient, nursing Anticipated discharge date: pending clinical course Anticipated discharge place: pending clinical course This dictation was prepared using [employer] voice recognition software. Though every attempt is made to correct errors during dictation some may still exist. Objective - Vital Signs Vital signs: Vital Signs Temp 98.4 F 12/18/22 08:00 Pulse 62 12/18/22 08:00 Resp 17 12/18/22 08:00 BP 163/67 12/18/22 08:00 Pulse Ox 96 12/18/22 08:10 FiO2 21 12/16/22 09:14 Intake & Output 12/17/22 12/18/22 12/18/22 18:59 06:59 18:59 Intake Total 1100 2280 900 Balance 1100 2280 900 Intake: Intake, IV Titration 1100 1800 900 Amount Lactated Ringers 1,000 ml 1000 1500 800 @ 125 mls/hr IV .Q8H [facility] Rx#:[id number] Nafcillin 2 gm In 100 300 100 Dextrose 5% in Water 100 ml @ 50 mls/hr IVPB Q4HR [facility] Rx#:[id number] Oral 480 Other: # Voids 5 # Bowel Movements 1 - Labs CBC & Chem 7: 12/18/22 07:34 12/18/22 07:34 Labs: Abnormal Lab Results - Last 24 Hours (Table) 12/18/22 12/18/22 Range/Units 07:34 07:34 Plt Count 145 L (150-450) k/uL Chloride 109 H (98-107) mmol/L Calcium 8.1 L (8.4-10.2) mg/dL Microbiology - Last 24 Hours (Table) 12/15/22 10:19 Blood Culture Gram Stain - Final Blood Blood Culture - Final Staphylococcus aureus 12/15/22 10:00 Blood Culture Gram Stain - Final Blood Blood Culture - Final Staphylococcus aureus
--- NOTE | 2022-12-18 15:46 | P.PN ---
Subjective Progress Note Date: 12/18/22 Principal diagnosis: MSSA Bacteremia Patient is a 86-year-old female with a past medical history significant for hypertension prediabetes to aortic wall stenosis in this patient who is s/p TAVR procedure about 3 years ago patient is now presenting to [facility] for evaluation of fever nausea and vomiting, patient was noted to have positive blood culture with MSSA. On today's evaluation that is 12/18/2022, the patient remains to be afebrile, patient is breathing comfortably on room air, the patient denies chest pain shortness with cough no abdominal pain vomiting diarrhea. The patient white count has normalized to 8.2, the patient creatinine 0.8, blood culture with MSSA echocardiogram with some perivalvular leakage did not mention any vegetation, repeat blood cultures pending Objective - Vital Signs Vital signs: Vital Signs Temp 97.7 F 12/18/22 13:33 Pulse 61 12/18/22 13:33 Resp 17 12/18/22 13:33 BP 172/67 12/18/22 13:33 Pulse Ox 98 12/18/22 13:33 FiO2 21 12/16/22 09:14 Intake & Output 12/17/22 12/18/22 12/18/22 18:59 06:59 18:59 Intake Total 1100 2280 900 Balance 1100 2280 900 Intake: Intake, IV Titration 1100 1800 900 Amount Lactated Ringers 1,000 ml 1000 1500 800 @ 125 mls/hr IV .Q8H [facility] Rx#:[id number] Nafcillin 2 gm In 100 300 100 Dextrose 5% in Water 100 ml @ 50 mls/hr IVPB Q4HR [facility] Rx#:[id number] Oral 480 Other: # Voids 5 # Bowel Movements 1 - Exam GENERAL DESCRIPTION: Elderly female lying in bed in no distress RESPIRATORY SYSTEM: Unlabored breathing , decreased breath sounds at bases HEART: S1 S2 regular rate and rhythm , loud murmur ABDOMEN: Soft , no tenderness EXTREMITIES: No edema feet - Labs CBC & Chem 7: 12/18/22 07:34 12/18/22 07:34 Labs: Abnormal Lab Results - Last 24 Hours (Table) 12/18/22 12/18/22 Range/Units 07:34 07:34 Plt Count 145 L (150-450) k/uL Chloride 109 H (98-107) mmol/L Calcium 8.1 L (8.4-10.2) mg/dL Microbiology - Last 24 Hours (Table) 12/15/22 10:19 Blood Culture Gram Stain - Final Blood Blood Culture - Final Staphylococcus aureus 12/15/22 10:00 Blood Culture Gram Stain - Final Blood Blood Culture - Final Staphylococcus aureus Assessment and Plan (1) Bacteremia due to methicillin susceptible Staphylococcus aureus (MSSA) Current Visit: Yes Status: Acute Code(s): R78.81 - BACTEREMIA; B95.61 - METHICILLIN SUSCEP STAPH INFCT CAUSING DIS CLASSD ELSWHR SNOMED Code(s): 917706901 Plan: 1patient with MSSA bacteremia in this patient was in the hospital with fever rigors and chills patient currently do not have obvious localizing focus of infection chest x-ray reported negative for any pneumonia urine has been negative abdominal soft on Examination no evidence of any cellulitis joint swelling or open wound in this patient who do have history of aortic stenosis s/p TAVR position concerning for possible endocarditis. 2blood cultures repeated to document clearance of bacteremia and are currently pending as per discussion with the lab. 3echocardiogram did not show any vegetation did show some perivalvular leakage patient benefit from a MANINDER for better definition of her aortic valve which has been ordered for tomorrow morning results will be followed. 4patient to continue Naficillin while waiting for repeat cultures to be finalize Dictation was produced using [employer] dictation software. please excuse any grammatical, word or spelling errors. Time with Patient: Less than 30
[2022-12-18] MEDS: amLODIPine 10 MG TAB PO SCH (16:38)
[2022-12-18] MEDS: LACTOBACILLUS ACIDOPHILUS/PECT 1 EACH CAPSULE PO SCH ×2 (16:38→21:25)
[2022-12-19] MEDS: NAFCILLIN 2 GM in DEXTROSE 5% IN WATER 100 ML IVPB SCH ×12 (00:56→22:01)
[2022-12-19] MEDS: LACTATED RINGERS 1,000 ML IV SCH ×3 (00:57→16:37)
[2022-12-19] MEDS: HEPARIN SODIUM,PORCINE 5,000 UNIT/ML 1 ML VIAL SQ SCH ×3 (00:57→16:49)
[2022-12-19] MEDS ORDERED: IV FLUID CONTINUATION 1,000 ML IV ONE (09:30)
[2022-12-19] MEDS: LACTOBACILLUS ACIDOPHILUS/PECT 1 EACH CAPSULE PO SCH ×4 (09:30→21:18)
[2022-12-19] MEDS ORDERED: fentaNYL (PF) 50 MCG/ML 2 ML AMP ONE (09:35)
[2022-12-19] MEDS ORDERED: MIDAZOLAM 2 MG/2 ML VIAL IVP ONE ×2 (10:00→10:05)
[2022-12-19] MEDS ORDERED: BENZOCAINE SPRAY 1 CAN MUCOUS MEM ONE (10:00)
[2022-12-19] MEDS ORDERED: fentaNYL (PF) 50 MCG/ML 2 ML AMP IVP ONE (10:00)
[2022-12-19] MEDS: KETOTIFEN 0.025% OPHTH DROPS 5 ML BTL BOTH EYES SCH ×2 (10:32→21:16)
[2022-12-19] MEDS: NON FORMULARY DRUG (Mirabegron [Myrbetriq] 50 MG Tab.Er.24h) PO SCH (10:34)
[2022-12-19] MEDS: MULTIVITAMINS, THERA 1 EACH TAB PO SCH (11:18)
[2022-12-19] MEDS: CLOPIDOGREL 75 MG TAB PO SCH (11:18)
[2022-12-19] MEDS: METOPROLOL TARTRATE 25 MG TAB PO SCH (11:18)
[2022-12-19] MEDS: amLODIPine 10 MG TAB PO SCH (11:19)
[2022-12-19] MEDS: CHOLECALCIFEROL 25 MCG (1000 IU) TABLET PO SCH (11:19)
[2022-12-19] MEDS: ATORVASTATIN 40 MG TAB PO SCH (11:19)
[2022-12-19] MEDS: ASPIRIN 81 MG PO SCH (11:19)
[2022-12-19] MEDS: VIT A,C & E-LUTEIN-MINERALS 1 EACH TAB PO SCH (11:22)
--- NOTE | 2022-12-19 13:03 | P.PN ---
Subjective Progress Note Date: 12/19/22 PROGRESS NOTE The patient is an 86-year-old female status post TAVR presented with a febrile episode. She feels well this morning, she denies any chest discomfort, dizziness or palpitations. She denies any nausea or vomiting. She denies any cough. Hemodynamically she is stable. She underwent a MANINDER today that showed no evidence of vegetations with mild to moderate aortic regurgitation and [id number] mitral regurgitation and preserved systolic function. Medications: Amlodipine 10 mg daily, aspirin, Lipitor 40 mg daily, Plavix 75 mg daily, metoprolol 25 mg daily PHYSICAL EXAMINATION: Blood pressure 170/70 heart rate 60 LUNGS: Clear to auscultation HEART: Regular rate and rhythm, S1, S2. No S3. Systolic ejection murmur 2/6 with a diastolic murmur ABDOMEN: Soft, nontender, no organomegaly EXTREMETIES: No edema LAB: Yesterday WBC 8.2, BUN 16, creatinine 0.8 IMPRESSION: 1. History of CAD status post stenting of the LAD 2. Status post TAVR 3. Febrile episode with bacteremia with no evidence of vegetations on the aortic valve 4. History of hyperlipidemia 5. Hypertension PLAN: 1. Add MARQUISE inhibitor for blood pressure control 2. Follow renal functions 3. No evidence of endocarditis at this point 4. Depending on her progress further recommendation will be made Objective - Vital Signs Vital signs: Vital Signs Temp 98.7 F 12/19/22 08:29 Pulse 65 12/19/22 10:18 Resp 16 12/19/22 10:18 BP 178/76 12/19/22 10:18 Pulse Ox 97 12/19/22 10:18 FiO2 21 12/16/22 09:14 Intake & Output 12/18/22 12/19/22 12/19/22 18:59 06:59 18:59 Intake Total 900 1780 1150 Balance 900 1780 1150 Intake: IV 50 Intake, IV Titration 900 1300 1100 Amount Lactated Ringers 1,000 ml 800 1000 1000 @ 125 mls/hr IV .Q8H [facility] Rx#:[id number] Nafcillin 2 gm In 100 300 100 Dextrose 5% in Water 100 ml @ 50 mls/hr IVPB Q4HR [facility] Rx#:[id number] Oral 480 Other: # Voids 3 # Bowel Movements 1 - Labs CBC & Chem 7: 12/18/22 07:34 12/18/22 07:34 Labs: Microbiology - Last 24 Hours (Table) 12/17/22 07:11 Blood Culture - Preliminary Blood
--- NOTE | 2022-12-19 13:07 | P.PCN ---
Date of Procedure: 12/19/22 Description of Procedure: Indication: Rule out endocarditis Procedure Description: After explaining the procedure to the patient, it's risk and complications, blood pressure, heart rate and O2 saturation were monitored. The throat was sprayed with Cetacaine. Patient received 3 mg intravenous Versed, 50 mcg intravenous fentanyl. The probe was introduced into the esophagus without difficulty. Images were obtained. Following that, the probe was removed. There was no immediate complication. Findings: Left atrial size is dilated, left atrial appendage is normal. Left ventricle size and systolic function is normal. The aortic valve is TAVR no evidence of vegetations. The mitral valve revealed severe mitral annulus calcification. Tricuspid valve is normal. No pericardial effusion was noted. Descending thoracic aorta appears to be normal. No shunting across the interatrial septum with bubble study Doppler: Pulse wave and color Doppler were obtained,. And revealed mild central aortic regurgitation and mild perivalvular regurgitation. [id number] mitral regurgitation and mild tricuspid regurgitation. There was no shunting across the intra-atrial septum. Conclusion: 1. Dilated left atrium with normal appearance of the left atrial appendage 2. Normal in size and systolic function 3. Bioprosthetic aortic valve, TAVR with no evidence of vegetations and mild to moderate regurgitation, central and perivalvular 4. Mild to moderate mitral regurgitation 5. No shunting across the intra-atrial septum
[2022-12-19] MEDS: lisinopriL 5 MG TAB PO SCH ×2 (13:14→21:15)
--- NOTE | 2022-12-19 16:36 | P.PN ---
Subjective Progress Note Date: 12/19/22 (delayed charting seen at 0830) Patient is a 86-year-old female with hypertension, dyslipidemia, coronary artery disease, aortic stenosis status post Jarrod who presented to the ER with com plaints of fever. On arrival to the ER her temperature was 101, pulse 102, and blood pressure 187/77 the remainder of her vitals are within normal limits. Chest x-ray shows possible left lateral pleural effusion. Urinalysis is remarkable for white blood cell count 12.4, sodium 136, bicarb 19, lactic acid of 3.4. Urinalysis and respiratory bile viral panels were negative. Patient was admitted for fever of unknown origin. She received doses of Zithromax and Rocephin in the ER. Blood cultures were obtained and came back with staph aureus in 2 out of 2. She underwent an echocardiogram which demonstrated ejection fraction 55-60%, mild to moderate perivalvular leak at the aortic valve and mild concentric LVH. She underwent renal ultrasound which showed no hydronephrosis or nephrolithiasis. Infectious disease was consulted. They recommended transesophageal echo and cardio was consulted. MANINDER negative for vegitations. Patient seen and examined at bedside. Complains of hemorrhoidal pain with wiping and small amounts of blood. She denies any chest pain or shortness of breath. No more nausea or vomiting. She does continue to complain of itchy eyes. Bowel movements have normalized. Vital signs reviewed General: nontoxic, no distress, appears at stated age Eyes: Bilateral periorbital redness with conjunctival injection or without signs of purulent drainage Cardiovascular: S1S2 reg, no murmur, positive posterior tibial pulse bilateral, Lungs: Decreased bs bilateral, no rhonchi, no rales , no accessory muscle use Abdominal: soft, nontender to palpation, no guarding, no appreciable organomegaly Ext: no gross muscle atrophy, no edema b/l lower extremities, no contractures Neuro: CN II-XI grossly intact, no focal neuro deficits Psych: Alert, oriented, appropriate affect Assessment/Plan: Staph aureus bacteremia without known etiology - D/W Dr. Tellez and plan will be for 4 weeks of dapt and PICC line one BC negative for 48 hours, Tagged WBC scan - off IVF - Naficillin 2g IVPB q4 hours for 24 hours - Lactobaclilus 1 capsule 4 times daily HTN, accelerated CAD, HLD -Lopressor 25 mg daily, Plavix 75 mg daily, Lipitor 40 mg daily, aspirin 81 mg daily - Norvasc 10 mg daily ALLERGIC conjunctivitis - Artificial tears 4 times daily as needed - Ketotifen eyedrops 1 drop twice daily both eyes Hemorrhoidal pain in known hemorrhoids - witch anthony pads. BREANNA, resolved New Imaging: MANINDER: no vegitation on aortic valve Hospital Course Imaging: renal ultrasound -no hydronephrosis or nephrolithiasis. echocardiogram - ejection fraction 55-60%, mild to moderate perivalvular leak at the aortic valve and mild concentric LVH Data Review: Vitals reviewed. Afebrile for the last 24 hours. No new labs for reviewed DVT prophylaxis: Heparin Discussed with: Patient, nursing Anticipated discharge date: pending clinical course Anticipated discharge place: pending clinical course This dictation was prepared using [employer] voice recognition software. Though every attempt is made to correct errors during dictation some may still exist. Objective - Vital Signs Vital signs: Vital Signs Temp 98.7 F 12/19/22 08:29 Pulse 65 12/19/22 10:18 Resp 16 12/19/22 10:18 BP 178/76 12/19/22 10:18 Pulse Ox 97 12/19/22 10:18 FiO2 21 12/16/22 09:14 Intake & Output 12/18/22 12/19/22 12/19/22 18:59 06:59 18:59 Intake Total 900 1780 1150 Balance 900 1780 1150 Intake: IV 50 Intake, IV Titration 900 1300 1100 Amount Lactated Ringers 1,000 ml 800 1000 1000 @ 125 mls/hr IV .Q8H [facility] Rx#:[id number] Nafcillin 2 gm In 100 300 100 Dextrose 5% in Water 100 ml @ 50 mls/hr IVPB Q4HR [facility] Rx#:[id number] Oral 480 Other: # Voids 3 # Bowel Movements 1 - Labs CBC & Chem 7: 12/18/22 07:34 12/18/22 07:34 Labs: Microbiology - Last 24 Hours (Table) 12/17/22 07:11 Blood Culture - Preliminary Blood
[2022-12-19] MEDS: ACETAMINOPHEN TAB 325 MG TAB PO PRN (21:15)
[2022-12-20] MEDS: HEPARIN SODIUM,PORCINE 5,000 UNIT/ML 1 ML VIAL SQ SCH ×3 (00:27→17:02)
[2022-12-20] MEDS: NAFCILLIN 2 GM in DEXTROSE 5% IN WATER 100 ML IVPB SCH ×12 (00:27→20:54)
[2022-12-20 07:45] LABS: African American GFR (CKD) 75 (>60 ml/min/1.73 sqM); Anion Gap 1 mmol/L; Blood Urea Nitrogen 13 mg/dL (7-17); Calcium 8.5 mg/dL (8.4-10.2); Carbon Dioxide 34 mmol/L (22-30); Chloride 104 mmol/L (98-107); Glucose 106 mg/dL (74-99); Non-African American GFR(CKD) 65 (>60 ml/min/1.73 sqM); Potassium 3.7 mmol/L (3.5-5.1); Sodium 139 mmol/L (137-145)
[2022-12-20] MEDS: LACTOBACILLUS ACIDOPHILUS/PECT 1 EACH CAPSULE PO SCH ×4 (12:17→21:00)
[2022-12-20] MEDS: ATORVASTATIN 40 MG TAB PO SCH (12:17)
[2022-12-20] MEDS: amLODIPine 10 MG TAB PO SCH (12:17)
[2022-12-20] MEDS: MULTIVITAMINS, THERA 1 EACH TAB PO SCH (12:17)
[2022-12-20] MEDS: lisinopriL 5 MG TAB PO SCH ×2 (12:17→20:54)
[2022-12-20] MEDS: CHOLECALCIFEROL 25 MCG (1000 IU) TABLET PO SCH (12:18)
[2022-12-20] MEDS: METOPROLOL TARTRATE 25 MG TAB PO SCH (12:18)
[2022-12-20] MEDS: ASPIRIN 81 MG PO SCH (12:18)
[2022-12-20] MEDS: VIT A,C & E-LUTEIN-MINERALS 1 EACH TAB PO SCH (12:18)
[2022-12-20] MEDS: CLOPIDOGREL 75 MG TAB PO SCH (12:18)
[2022-12-20] MEDS: NON FORMULARY DRUG (Mirabegron [Myrbetriq] 50 MG Tab.Er.24h) PO SCH (12:19)
[2022-12-20] MEDS: KETOTIFEN 0.025% OPHTH DROPS 5 ML BTL BOTH EYES SCH ×2 (12:38→20:54)
[2022-12-20 13:32] LABS: HCT 40.5 % (34.0-46.0); HGB 13.3 gm/dL (11.4-16.0); MCH 28.8 pg (25.0-35.0); MCHC 32.9 g/dL (31.0-37.0); MCV 87.5 fL (80.0-100.0); Mean Platelet Volume 8.8; Platelet Count 178 k/uL (150-450); RBC 4.62 m/uL (3.80-5.40); RDW 15.3 % (11.5-15.5); WBC 8.1 k/uL (3.8-10.6)
--- NOTE | 2022-12-20 19:15 | P.PN ---
Subjective Progress Note Date: 12/20/22 (delayed charting seen at 0945) Patient is a 86-year-old female with hypertension, dyslipidemia, coronary artery disease, aortic stenosis status post Jarrod who presented to the ER with com plaints of fever. On arrival to the ER her temperature was 101, pulse 102, and blood pressure 187/77 the remainder of her vitals are within normal limits. Chest x-ray shows possible left lateral pleural effusion. Urinalysis is remarkable for white blood cell count 12.4, sodium 136, bicarb 19, lactic acid of 3.4. Urinalysis and respiratory bile viral panels were negative. Patient was admitted for fever of unknown origin. She received doses of Zithromax and Rocephin in the ER. Blood cultures were obtained and came back with staph aureus in 2 out of 2. She underwent an echocardiogram which demonstrated ejection fraction 55-60%, mild to moderate perivalvular leak at the aortic valve and mild concentric LVH. She underwent renal ultrasound which showed no hydronephrosis or nephrolithiasis. Infectious disease was consulted. They recommended transesophageal echo and cardio was consulted. MANINDER negative for vegitations. Patient seen and examined at bedside. Eyes are slowly getting better. No other complaints.Questions answerred about tagger WBC scan and PICC line. Vital signs reviewed General: nontoxic, no distress, appears at stated age Eyes: Bilateral periorbital redness with conjunctival injection or without signs of purulent drainage Cardiovascular: S1S2 reg, no murmur, positive posterior tibial pulse bilateral, Lungs: Decreased bs bilateral, no rhonchi, no rales , no accessory muscle use Abdominal: soft, nontender to palpation, no guarding, no appreciable organ omegaly Ext: no gross muscle atrophy, no edema b/l lower extremities, no contractures Neuro: CN II-XI grossly intact, no focal neuro deficits Psych: Alert, oriented, appropriate affect Assessment/Plan: Staph aureus bacteremia without known etiology -Await further infectious disease recommendations.4 weeks of dapt and PICC - Naficillin 2g IVPB q4 hours for 24 hours - Lactobaclilus 1 capsule 4 times daily -Await tagged white blood cell scan results. - PICC in AM HTN, accelerated CAD, HLD -Lopressor 25 mg daily, Plavix 75 mg daily, Lipitor 40 mg daily, aspirin 81 mg daily - Norvasc 10 mg daily ALLERGIC conjunctivitis - Artificial tears 4 times daily as needed - Ketotifen eyedrops 1 drop twice daily both eyes Hemorrhoidal pain in known hemorrhoids - witch anthony pads. BREANNA, resolved New Imaging: None Hospital Course Imaging: renal ultrasound -no hydronephrosis or nephrolithiasis. echocardiogram - ejection fraction 55-60%, mild to moderate perivalvular leak at the aortic valve and mild concentric LVH MANINDER: no vegitation on aortic valve Data Review: Vitals reviewed. Patient afebrile for the last 24 hours. Labs reviewed included CBC and basic metabolic profile. Remarkable for carbon dioxide of 34. Blood cultures from 12/17 negative for 48 hours. DVT prophylaxis: Heparin Discussed with: Patient, nursing Anticipated discharge date: pending clinical course Anticipated discharge place: pending clinical course This dictation was prepared using [employer] voice recognition software. Though every attempt is made to correct errors during dictation some may still exist. Objective - Vital Signs Vital signs: Vital Signs Temp 98.9 F 12/20/22 13:47 Pulse 61 12/20/22 13:47 Resp 18 12/20/22 13:47 BP 138/67 12/20/22 13:47 Pulse Ox 98 12/20/22 13:47 FiO2 21 12/16/22 09:14 Intake & Output 12/20/22 12/20/22 12/21/22 06:59 18:59 06:59 Intake Total 200 Balance 200 Weight 58.967 kg Intake: Intake, IV Titration 200 Amount Nafcillin 2 gm In 200 Dextrose 5% in Water 100 ml @ 50 mls/hr IVPB Q4HR [facility] Rx#:[id number] Other: Voiding Method Toilet # Voids 2 3 - Labs CBC & Chem 7: 12/20/22 13:01 12/20/22 07:00 Labs: Abnormal Lab Results - Last 24 Hours (Table) 12/20/22 Range/Units 07:00 Carbon Dioxide 34 H (22-30) mmol/L Glucose 106 H (74-99) mg/dL Microbiology - Last 24 Hours (Table) 12/18/22 07:34 Blood Culture - Preliminary Blood 12/17/22 07:11 Blood Culture - Preliminary Blood 12/19/22 06:18 Blood Culture - Preliminary Blood
--- NOTE | 2022-12-20 23:03 | P.PN ---
Subjective Progress Note Date: 12/19/22 Principal diagnosis: MSSA Bacteremia Patient is a 86-year-old female with a past medical history significant for hypertension prediabetes to aortic wall stenosis in this patient who is s/p TAVR procedure about 3 years ago patient is now presenting to [facility] for evaluation of fever nausea and vomiting, patient was noted to have positive blood culture with MSSA. On today's evaluation that is 12/19/2022 patient remains to be afebrile, the patient is breathing comfortably room air patient denies having any chest pain shortness of the cough no nausea vomiting no abdominal pain no diarrhea overall feeling better the patient did have history of cervical spine surgery admission no hardware currently no pain to the upper or lower back area. Patient did have a CRP of 3.6 today no CBC or BMP was done blood culture repeated 12/17/2022 as well as 12/18/2022 so far negative patient did have a MANINDER that was negative for any vegetation Objective - Vital Signs Vital signs: Vital Signs Temp 97.4 F L 12/20/22 06:35 Pulse 66 12/20/22 06:35 Resp 18 12/20/22 06:35 BP 162/69 12/20/22 06:35 Pulse Ox 96 12/20/22 06:35 FiO2 21 12/16/22 09:14 Intake & Output 12/19/22 12/20/22 12/20/22 18:59 06:59 18:59 Intake Total 1150 Balance 1150 Intake: IV 50 Intake, IV Titration 1100 Amount Lactated Ringers 1,000 ml 1000 @ 125 mls/hr IV .Q8H [facility] Rx#:[id number] Nafcillin 2 gm In 100 Dextrose 5% in Water 100 ml @ 50 mls/hr IVPB Q4HR [facility] Rx#:[id number] Other: Voiding Method Toilet # Voids 4 2 # Bowel Movements 2 - Exam GENERAL DESCRIPTION: Elderly female lying in bed in no distress RESPIRATORY SYSTEM: Unlabored breathing , decreased breath sounds at bases HEART: S1 S2 regular rate and rhythm , loud murmur ABDOMEN: Soft , no tenderness EXTREMITIES: No edema feet - Labs CBC & Chem 7: 12/20/22 13:01 12/20/22 07:00 Labs: Abnormal Lab Results - Last 24 Hours (Table) 12/19/22 12/20/22 Range/Units 04:45 07:00 Carbon Dioxide 34 H (22-30) mmol/L Glucose 106 H (74-99) mg/dL C-Reactive Protein 3.6 H (<1.0) mg/dL Microbiology - Last 24 Hours (Table) 12/19/22 06:18 Blood Culture - Preliminary Blood 12/18/22 07:34 Blood Culture - Preliminary Blood 12/17/22 07:11 Blood Culture - Preliminary Blood Assessment and Plan (1) Bacteremia due to methicillin susceptible Staphylococcus aureus (MSSA) Current Visit: Yes Status: Acute Code(s): R78.81 - BACTEREMIA; B95.61 - METHICILLIN SUSCEP STAPH INFCT CAUSING DIS CLASSD ELSWHR SNOMED Code(s): 988268547 Plan: 1patient with MSSA bacteremia in this patient was in the hospital with fever rigors and chills patient currently do not have obvious localizing focus of infection chest x-ray reported negative for any pneumonia urine has been negative abdominal soft on Examination no evidence of any cellulitis joint swelling or open wound in this patient who do have history of aortic stenosis s/p TAVR position concerning for possible endocarditis. 2blood cultures repeated to document clearance of bacteremia and are currently pending as per discussion with the lab. 3echocardiogram did not show any vegetation did show some perivalvular leakage patient did have MANINDER that was negative for vegetations. 4patient to continue Naficillin and will order WBC scan to help localize the source of this bacteremia d/w medical team Dictation was produced using [employer] dictation software. please excuse any grammatical, word or spelling errors. Time with Patient: Less than 30
--- NOTE | 2022-12-20 23:06 | P.PN ---
Subjective Progress Note Date: 12/20/22 Principal diagnosis: MSSA Bacteremia Patient is a 86-year-old female with a past medical history significant for hypertension prediabetes to aortic wall stenosis in this patient who is s/p TAVR procedure about 3 years ago patient is now presenting to [facility] for evaluation of fever nausea and vomiting, patient was noted to have positive blood culture with MSSA. Patient did have a MANINDER on 12/19/2022 that was negative for any vegetation. On today's evaluation there is 12/20/2022 the patient denies having any fever or any chills, the patient is breathing comfortably on room air no chest pain shortness of the cough no nausea vomiting abdominal pain and no pain to the upper or lower spine area. Patient did have a white count of 8.1 creatinine 0.82 blood culture repeat on 12 17, 12 18 as well as 12/19/2022 so far negative patient did have a WBC scan currently in progress Objective - Vital Signs Vital signs: Vital Signs Temp 97.4 F L 12/20/22 06:35 Pulse 66 12/20/22 06:35 Resp 18 12/20/22 06:35 BP 162/69 12/20/22 06:35 Pulse Ox 96 12/20/22 06:35 FiO2 21 12/16/22 09:14 Intake & Output 12/19/22 12/20/22 12/20/22 18:59 06:59 18:59 Intake Total 1150 Balance 1150 Intake: IV 50 Intake, IV Titration 1100 Amount Lactated Ringers 1,000 ml 1000 @ 125 mls/hr IV .Q8H [facility] Rx#:[id number] Nafcillin 2 gm In 100 Dextrose 5% in Water 100 ml @ 50 mls/hr IVPB Q4HR [facility] Rx#:[id number] Other: Voiding Method Toilet # Voids 4 2 # Bowel Movements 2 - Exam GENERAL DESCRIPTION: Elderly female lying in bed in no distress RESPIRATORY SYSTEM: Unlabored breathing , decreased breath sounds at bases HEART: S1 S2 regular rate and rhythm , loud murmur ABDOMEN: Soft , no tenderness EXTREMITIES: No edema feet - Labs CBC & Chem 7: 12/20/22 13:01 12/20/22 07:00 Labs: Abnormal Lab Results - Last 24 Hours (Table) 09/04/23 09/05/23 Range/Units 04:45 07:00 Carbon Dioxide 34 H (22-30) mmol/L Glucose 106 H (74-99) mg/dL C-Reactive Protein 3.6 H (<1.0) mg/dL Microbiology - Last 24 Hours (Table) 12/19/22 06:18 Blood Culture - Preliminary Blood 12/18/22 07:34 Blood Culture - Preliminary Blood 12/17/22 07:11 Blood Culture - Preliminary Blood Assessment and Plan (1) Bacteremia due to methicillin susceptible Staphylococcus aureus (MSSA) Current Visit: Yes Status: Acute Code(s): R78.81 - BACTEREMIA; B95.61 - METHICILLIN SUSCEP STAPH INFCT CAUSING DIS CLASSD ELSWHR SNOMED Code(s): 737162265 Plan: 1patient with MSSA bacteremia in this patient was in the hospital with fever rigors and chills patient currently do not have obvious localizing focus of infection chest x-ray reported negative for any pneumonia urine has been negative abdominal soft on Examination no evidence of any cellulitis joint swelling or open wound in this patient who do have history of aortic stenosis s/p TAVR position concerning for possible endocarditis. 2blood cultures repeated to document clearance of bacteremia and are currently pending as per discussion with the lab. 3echocardiogram did not show any vegetation did show some perivalvular leakage patient did have MANINDER that was negative for vegetations. 4patient to continue Naficillin While waiting for the WBC scan to be finalized that will help localize a source of this bacteremia and need for any further work-up Dictation was produced using [employer] dictation software. please excuse any grammatical, word or spelling errors. Time with Patient: Less than 30
[2022-12-21] MEDS: HEPARIN SODIUM,PORCINE 5,000 UNIT/ML 1 ML VIAL SQ SCH ×3 (00:33→22:12)
[2022-12-21] MEDS: NAFCILLIN 2 GM in DEXTROSE 5% IN WATER 100 ML IVPB SCH ×12 (00:33→22:19)
[2022-12-21] MEDS: NON FORMULARY DRUG (Mirabegron [Myrbetriq] 50 MG Tab.Er.24h) PO SCH (10:07)
[2022-12-21] MEDS: LACTOBACILLUS ACIDOPHILUS/PECT 1 EACH CAPSULE PO SCH ×4 (10:08→22:18)
[2022-12-21] MEDS: METOPROLOL TARTRATE 25 MG TAB PO SCH (10:08)
[2022-12-21] MEDS: ASPIRIN 81 MG PO SCH (10:08)
[2022-12-21] MEDS: CHOLECALCIFEROL 25 MCG (1000 IU) TABLET PO SCH (10:08)
[2022-12-21] MEDS: VIT A,C & E-LUTEIN-MINERALS 1 EACH TAB PO SCH (10:08)
[2022-12-21] MEDS: MULTIVITAMINS, THERA 1 EACH TAB PO SCH (10:08)
[2022-12-21] MEDS: CLOPIDOGREL 75 MG TAB PO SCH (10:08)
[2022-12-21] MEDS: amLODIPine 10 MG TAB PO SCH (10:08)
[2022-12-21] MEDS: lisinopriL 5 MG TAB PO SCH ×2 (10:08→22:18)
[2022-12-21] MEDS: ATORVASTATIN 40 MG TAB PO SCH (10:09)
[2022-12-21] MEDS: KETOTIFEN 0.025% OPHTH DROPS 5 ML BTL BOTH EYES SCH ×2 (10:09→22:18)
[2022-12-21] MEDS ORDERED: LIDOCAINE 1% INJ 10MG/ML (5 ML VIAL-PF) SQ ONE (11:54)
--- NOTE | 2022-12-21 12:21 | IR ---
PICC LINE PLACEMENT: HISTORY: Infection requiring long-term antibiotic therapy PROCEDURE: Ultrasound and fluoroscopic guidance of PICC line placement. COMPLICATIONS: None ANESTHESIA: 1. 1% Lidocaine locally. FINDINGS/TECHNIQUE: The procedure was explained to the patient. The risks, complications, benefits and alternatives were discussed and any questions were answered. Informed consent was obtained. The patient was placed supine on the fluoroscopic table and prepped and draped in the usual sterile fash ion. Utilizing a 21 gauge needle and sonographic and fluoroscopic guidance, access in the left basi lic vein was achieved and there is placement of a 0.018 guidewire. The vein is patent. A 4-F sheath was placed over the guidewire. The guidewire and dilator were removed and a 4-F. PICC line was plac ed through the sheath with the tip at the level of the SVC. The sheath was removed, the catheter was flushed and sutured into position. The patient was stable throughout the procedure and remained sta ble upon discharge from the Department of Radiology. The vein puncture was patent under ultrasound. A mondragon scale image was obtained to document patency of the vein punctured. All elements of the maximal barrier technique were utilized. FLUOROSCOPY TIME: DAP 0.3183Gy cm2 IMPRESSION: Successful PICC line placement under ultrasound and fluoroscopic guidance.
--- NOTE | 2022-12-21 13:15 | CDI ---
Documentation Clarification Form Date: 12/21/2022 12:54:53 PM From: Ivelisse Melendrez RN CCDS Phone: [phone] Admit Date: 12/15/2022 08:50:00 AM Patient Name: China Coreas Visit Number: [id number] Discharge Date: ATTENTION: The Clinical Documentation Specialists (CDI) and [facility] Coding Staff appreciate your assistance in clarifying documentation. Please respond to the clarification below the line at the bottom and electronically sign. The CDI & [facility] Coding staff will review the response and follow-up if needed. Please note: Queries are made part of the Legal Health Record. If you have any questions, please contact the author of this message via ITS. Dr. Britta Rivera, There is documentation of Staph aureus bacteremia is documented in Medicine progress note, 12/20. Bacteremia is considered a lab finding. Additional clarification regarding bacteremia is requested. Patient history/risk factors: 86-year old female presents to ED with fevers, chills, myalgias and arthralgias. Medical History: CAD, Severe aortic stenosis status post TAVR, dyslipidemia and HTN. 12/15, H&P. Clinical Indicators: 12/15, H&P: Sepsis, unclear source. WBC, 12/15: Wbc 12.4 Left Shift, 12/15: Neutrophils 11.3 Blood Culture, 12/15: Staphylococcus aureus Consult, ID 12/16: Patient with MSSA bacteremia in this patient was in the hospital with fever rigors and chills patient currently do not have obvious localizing focus of infection chest x-ray reported negative for any pneumonia urine has been negative abdominal soft on Examination no evidence of any cellulitis joint swelling or open wound in this patient who do have history of aortic stenosis s/p TAVR position concerning for possible endocarditis. Treatment: 12/15 0.9NS 1L Bolus x1 Antibiotics: 12/15 Azithromycin IVPB x 1; 12/15 Ceftriaxone IVPB x 1; 12/15 12/16 Zosyn IVPB Q8HR; 12/16 Cefazolin IVPB Q8HR discontinued after two doses; 12/16 Nafcillin IVPB Q4HR Please provide additional clarification regarding the etiology/cause and/or clinical significance of the bacteremia: [ ] Bacteremia is related to sepsis [ ] Other, please specify [ X ] Unable to determine (Template Last Revised: June 2020) MTDD
--- NOTE | 2022-12-21 13:32 | P.PN ---
Subjective Progress Note Date: 12/21/22 PROGRESS NOTE The patient is an 86-year-old female status post TAVR presented with a febrile episode. She feels well this morning, she denies any chest discomfort, dizziness or palpitations. She denies any nausea or vomiting. She denies any cough. Hemodynamically she is stable. Patient's repeat blood cultures have been negative so far for 24 hours. Medications: PHYSICAL EXAMINATION: Blood pressure 170/70 heart rate 60 LUNGS: Clear to auscultation HEART: Regular rate and rhythm, S1, S2. No S3. Systolic ejection murmur 2/6 with a diastolic murmur ABDOMEN: Soft, nontender, no organomegaly EXTREMETIES: No edema IMPRESSION: 1. History of CAD status post stenting of the LAD 2. Status post TAVR 3. Febrile episode with bacteremia with no evidence of vegetations on the aortic valve 4. History of hyperlipidemia 5. Hypertension PLAN: Continue aspirin and Plavix Lipitor metoprolol amlodipine and lisinopril Continue IV antibiotics and management of other comorbidities as per primary team and infectious disease team. At this time cardiology team will sign off. Please reconsult us in case of any questions. Objective - Vital Signs Vital signs: Vital Signs Temp 98.6 F 12/21/22 12:36 Pulse 61 12/21/22 12:36 Resp 18 12/21/22 12:36 BP 170/68 12/21/22 12:36 Pulse Ox 98 12/21/22 12:36 FiO2 21 12/16/22 09:14 Intake & Output 12/20/22 12/21/22 12/21/22 18:59 06:59 18:59 Intake Total 200 Balance 200 Weight 58.967 kg Intake: Intake, IV Titration 200 Amount Nafcillin 2 gm In 200 Dextrose 5% in Water 100 ml @ 50 mls/hr IVPB Q4HR [facility] Rx#:[id number] Other: Voiding Method Toilet # Voids 3 2 - Labs CBC & Chem 7: 12/20/22 13:01 12/20/22 07:00 Labs: Microbiology - Last 24 Hours (Table) 12/19/22 06:18 Blood Culture - Preliminary Blood 12/18/22 07:34 Blood Culture - Preliminary Blood 12/17/22 07:11 Blood Culture - Preliminary Blood
--- NOTE | 2022-12-21 14:46 | P.PN ---
Subjective Progress Note Date: 12/21/22 Patient is a 86-year-old female with hypertension, dyslipidemia, coronary artery disease, aortic stenosis status post Jarrod who presented to the ER with complaints of fever. On arrival to the ER her temperature was 101, pulse 102, and blood pressure 187/77 the remainder of her vitals are within normal limits. Chest x-ray shows possible left lateral pleural effusion. Urinalysis is re markable for white blood cell count 12.4, sodium 136, bicarb 19, lactic acid of 3.4. Urinalysis and respiratory bile viral panels were negative. Patient was admitted for fever of unknown origin. She received doses of Zithromax and Rocephin in the ER. Blood cultures were obtained and came back with staph aureus in 2 out of 2. She underwent an echocardiogram which demonstrated ejection fraction 55-60%, mild to moderate perivalvular leak at the aortic valve and mild concentric LVH. She underwent renal ultrasound which showed no hydronephrosis or nephrolithiasis. Infectious disease was consulted. They recommended transesophageal echo and cardio was consulted. MANINDER negative for vegitations. Patient seen and examined at bedside. She is doing well. Eyes are still itching but getting better. Again went over PICC line and instructions for home. Vital signs reviewed General: nontoxic, no distress, appears at stated age Eyes: Bilateral periorbital redness with conjunctival injection or without signs of purulent drainage Cardiovascular: S1S2 reg, no murmur, positive posterior tibial pulse bilateral, Lungs: CTA bilateral, no rhonchi, no rales , no accessory muscle use Neuro: CN II-XI grossly intact, no focal neuro deficits Psych: Alert, oriented, appropriate affect Assessment/Plan: Staph aureus bacteremia without known etiology -Await further infectious disease recommendations.4 weeks of dapt and PICC - Naficillin 2g IVPB q4 hours for 24 hours - Lactobaclilus 1 capsule 4 times daily - D/W Dr. Tellez and PICC line ordered - Awiat tagged WBC scan still - Cardio noted reviewed andthey have signed off HTN CAD, HLD -Lopressor 25 mg daily, Plavix 75 mg daily, Lipitor 40 mg daily, aspirin 81 mg daily - Norvasc 10 mg daily ALLERGIC conjunctivitis - Artificial tears 4 times daily as needed - Ketotifen eyedrops 1 drop twice daily both eyes Hemorrhoidal pain in known hemorrhoids - witch anthony pads. BREANNA, resolved New Imaging: None Hospital Course Imaging: renal ultrasound -no hydronephrosis or nephrolithiasis. echocardiogram - ejection fraction 55-60%, mild to moderate perivalvular leak at the aortic valve and mild concentric LVH MANINDER: no vegitation on aortic valve Data Review: Patient afebrile for the last 24 hours. VItals reviewed Blood cultures from 12/17 negative for 72 hours. DVT prophylaxis: Heparin Discussed with: Patient, nursing Anticipated discharge date: in AM Anticipated discharge place: Home This dictation was prepared using [employer] voice recognition software. o [facility] satellite every attempt is made to correct errors during dictation some may still exist. Objective - Vital Signs Vital signs: Vital Signs Temp 98.6 F 12/21/22 12:36 Pulse 61 12/21/22 12:36 Resp 18 12/21/22 12:36 BP 170/68 12/21/22 12:36 Pulse Ox 98 12/21/22 12:36 FiO2 21 12/16/22 09:14 Intake & Output 12/20/22 12/21/22 12/21/22 18:59 06:59 18:59 Intake Total 200 Balance 200 Weight 58.967 kg Intake: Intake, IV Titration 200 Amount Nafcillin 2 gm In 200 Dextrose 5% in Water 100 ml @ 50 mls/hr IVPB Q4HR [facility] Rx#:[id number] Other: Voiding Method Toilet # Voids 3 2 - Labs CBC & Chem 7: 12/20/22 13:01 12/20/22 07:00 Labs: Microbiology - Last 24 Hours (Table) 12/19/22 06:18 Blood Culture - Preliminary Blood 12/18/22 07:34 Blood Culture - Preliminary Blood 12/17/22 07:11 Blood Culture - Preliminary Blood
--- NOTE | 2022-12-21 19:33 | NM ---
EXAMINATION TYPE: NM WBC whole body DATE OF EXAM: 12/21/2022 COMPARISON: NONE CLINICAL INDICATION: Female, 86 years old with history of bacteremia unknown source; TECHNIQUE: Following administration of 18.9 mCi Tc99m Ceretec. Images obtained 3 hours post injecti on. FINDINGS: Normal physiological tracer activity is noted in the liver and spleen and in the bone marrow of the a xial and appendicular skeleton. Normal uptake within the bladder. IMPRESSION: Normal white blood cell scan. No evidence for abnormal tracer activity.
--- NOTE | 2022-12-21 22:36 | P.PN ---
Subjective Progress Note Date: 12/21/22 Principal diagnosis: MSSA Bacteremia Patient is a 86-year-old female with a past medical history significant for hypertension prediabetes to aortic wall stenosis in this patient who is s/p TAVR procedure about 3 years ago patient is now presenting to [facility] for evaluation of fever nausea and vomiting, patient was noted to have positive blood culture with MSSA. Patient did have a MANINDER on 12/19/2022 that was negative for any vegetation. On today's evaluation there is 12/21/2022 the patient remains to be afebrile, the patient is breathing comfortably on room air. Denies having any chest pain shortness of the cough no nausea vomiting abdominal pain or diarrhea. Patient did have a normal white to 8.5 as of yesterday no CBC was done today did have a normal sed rate of 8 blood culture repeat has been negative WBC scan report still pending Objective - Vital Signs Vital signs: Vital Signs Temp 98.3 F 12/21/22 07:58 Pulse 63 12/21/22 07:58 Resp 16 12/21/22 07:58 BP 120/64 12/21/22 07:58 Pulse Ox 95 12/21/22 07:58 FiO2 21 12/16/22 09:14 Intake & Output 12/20/22 12/21/22 12/21/22 18:59 06:59 18:59 Intake Total 200 Balance 200 Weight 58.967 kg Intake: Intake, IV Titration 200 Amount Nafcillin 2 gm In 200 Dextrose 5% in Water 100 ml @ 50 mls/hr IVPB Q4HR [facility] Rx#:[id number] Other: Voiding Method Toilet # Voids 3 2 - Exam GENERAL DESCRIPTION: Elderly female lying in bed in no distress RESPIRATORY SYSTEM: Unlabored breathing , decreased breath sounds at bases HEART: S1 S2 regular rate and rhythm , loud murmur ABDOMEN: Soft , no tenderness EXTREMITIES: No edema feet - Labs CBC & Chem 7: 12/20/22 13:01 12/20/22 07:00 Labs: Microbiology - Last 24 Hours (Table) 12/18/22 07:34 Blood Culture - Preliminary Blood 12/17/22 07:11 Blood Culture - Preliminary Blood 12/19/22 06:18 Blood Culture - Preliminary Blood Assessment and Plan (1) Bacteremia due to methicillin susceptible Staphylococcus aureus (MSSA) Current Visit: Yes Status: Acute Code(s): R78.81 - BACTEREMIA; B95.61 - METHICILLIN SUSCEP STAPH INFCT CAUSING DIS CLASSD ELSWHR SNOMED Code(s): 227163775 Plan: 1patient with MSSA bacteremia in this patient was in the hospital with fever rigors and chills patient currently do not have obvious localizing focus of infection chest x-ray reported negative for any pneumonia urine has been negative abdominal soft on Examination no evidence of any cellulitis joint swelling or open wound in this patient who do have history of aortic stenosis s/p TAVR position concerning for possible endocarditis. 2blood cultures repeated to document clearance of bacteremia and are currently pending as per discussion with the lab. 3echocardiogram did not show any vegetation did show some perivalvular leakage patient did have MANINDER that was negative for vegetations. 4patient to continue Naficillin While waiting for the WBC scan to be finalized , Patient should be able to get a PICC line as the patient has cleared her bacteremia as the patient refusing to go to the residential to get cefazolin we will plan on daptomycin on discharge total duration should be 4 weeks from the negative blood culture, discussed with the admitting team Dictation was produced using [employer] dictation software. please excuse any grammatical, word or spelling errors. Time with Patient: Less than 30
[2022-12-22] MEDS: NAFCILLIN 2 GM in DEXTROSE 5% IN WATER 100 ML IVPB SCH ×6 (01:02→08:41)
[2022-12-22] MEDS: HEPARIN SODIUM,PORCINE 5,000 UNIT/ML 1 ML VIAL SQ SCH ×3 (01:02→15:17)
[2022-12-22] MEDS: VIT A,C & E-LUTEIN-MINERALS 1 EACH TAB PO SCH (08:39)
[2022-12-22] MEDS: CHOLECALCIFEROL 25 MCG (1000 IU) TABLET PO SCH (08:40)
[2022-12-22] MEDS: CLOPIDOGREL 75 MG TAB PO SCH (08:40)
[2022-12-22] MEDS: MULTIVITAMINS, THERA 1 EACH TAB PO SCH (08:40)
[2022-12-22] MEDS: amLODIPine 10 MG TAB PO SCH (08:40)
[2022-12-22] MEDS: LACTOBACILLUS ACIDOPHILUS/PECT 1 EACH CAPSULE PO SCH ×3 (08:40→15:17)
[2022-12-22] MEDS: METOPROLOL TARTRATE 25 MG TAB PO SCH (08:40)
[2022-12-22] MEDS: ASPIRIN 81 MG PO SCH (08:40)
[2022-12-22] MEDS: ATORVASTATIN 40 MG TAB PO SCH (08:40)
[2022-12-22] MEDS: lisinopriL 5 MG TAB PO SCH (08:40)
[2022-12-22] MEDS: KETOTIFEN 0.025% OPHTH DROPS 5 ML BTL BOTH EYES SCH (08:43)
[2022-12-22] MEDS: NON FORMULARY DRUG (Mirabegron [Myrbetriq] 50 MG Tab.Er.24h) PO SCH (08:50)
[2022-12-22] MEDS ORDERED: DAPTOmycin 350 MG in SODIUM CHLORIDE 0.9% 50 ML IVPB SCH (11:00)
[2022-12-22 15:07] VITALS: BP 126/62; PULSE 73; RESP 18; TEMP 98.7
--- NOTE | 2022-12-22 15:31 | P.DS ---
Providers Date of admission: 12/15/22 08:50 Expected date of discharge: 12/22/22 Attending physician: Jose Byrne MD Consults: 12/16/22 08:27 Consult Physician Routine Consulting Provider: Abrahan Tellez Consult Reason/Comments: Gram + bacteremia, hx of TAVR Do you want consulting provider notified?: Yes Primary care physician: See Lane Hospital Course: Discharge Diagnosis: Staph aureus bacteremia, on known etiology BREANNA, resolved HTN CAD HLD ALLERGIC conjunctivitis Hospital Course: Patient is a 86-year-old female with hypertension, dyslipidemia, coronary artery disease, aortic stenosis status post Jarrod who presented to the ER with complaints of fever. On arrival to the ER her temperature was 101, pulse 102, and blood pressure 187/77 the remainder of her vitals are within normal limits. Chest x-ray shows possible left lateral pleural effusion. Urinalysis is remarkable for white blood cell count 12.4, sodium 136, bicarb 19, lactic acid of 3.4. Urinalysis and respiratory bile viral panels were negative. Patient was admitted for fever of unknown origin. She received doses of Zithromax and Rocephin in the ER. Blood cultures were obtained and came back with staph aureus in 2 out of 2. She underwent an echocardiogram which demonstrated ejection fraction 55-60%, mild to moderate perivalvular leak at the aortic valve and mild concentric LVH. She underwent renal ultrasound which showed no hydronephrosis or nephrolithiasis. Infectious disease was consulted. They recommended transesophageal echo and cardio was consulted. MANINDER negative for vegetations. Tagged white blood cell scan was negative. Patient continued to do well and was determined stable for discharge. She had a PICC line placed with a plan to complete 4 weeks of outpatient daptomycin. Follow-up: Dapto at [facility] for the next 4 weeks, Dr. Tellez in 2 weeks, Dr. Lane in 2-3 days, off lipitor untiln completes dapto Hospital Course Imaging: renal ultrasound -no hydronephrosis or nephrolithiasis. echocardiogram - ejection fraction 55-60%, mild to moderate perivalvular leak at the aortic valve and mild concentric LVH MANINDER: no vegitation on aortic valve Patient seen and examined at bedside. Her eye are getting better, loose stools resolved. Still with some hemorrhoid pain on wiping. Vital signs reviewed and stable. General: nontoxic, no distress, appears at stated age Cardiovascular: S1S2 reg, no murmur, positive posterior tibial pulse bilateral, Lungs: Decreased bs bilateral, no rhonchi, no rales , no accessory muscle use Abdominal: soft, nontender to palpation, no guarding, no appreciable organomegaly Ext: no gross muscle atrophy, no edema b/l lower extremities, no contractures Neuro: CN II-XI grossly intact, no focal neuro deficits Psych: Alert, oriented, appropriate affect A total of 65 minutes of time were spent preparing this complex discharge summary. Patient was discharged on 12/22/22. This dictation was prepared using [employer] voice recognition software. Though every attempt is made to correct errors during dictation some may still exist. Patient Condition at Discharge: Fair Plan - Discharge Summary Discharge Rx Participant: No New Discharge Prescriptions: New DAPTOmycin 350 mg IV DAILY #23 each Lactobacillus Acidophilus [Florajen Acidophilus] 1 each PO AC-BID #60 capsule lisinopriL [Zestril] 5 mg PO BID #60 tab Continue amLODIPine BESYLATE [Norvasc] 10 mg PO DAILY Multivitamins, Thera [Multivitamin (formulary)] 1 tab PO DAILY Vit C/E/Zn/Coppr/Lutein/Zeaxan [Preservision Areds 2 Softgel] 1 cap PO DAILY Metoprolol Tartrate 25 mg PO DAILY Aspirin [Adult Low Dose Aspirin EC] 81 mg PO DAILY Mirabegron [Myrbetriq] 50 mg PO DAILY Cholecalciferol [Vitamin D3 (25 Mcg = 1000 Iu)] 25 mcg PO DAILY Clopidogrel [Plavix] 75 mg PO DAILY Discontinued Atorvastatin [Lipitor] 40 mg PO DIRECTED Discharge Medication List amLODIPine BESYLATE [Norvasc] 10 mg PO DAILY 12/16/14 [History] Multivitamins, Thera [Multivitamin (formulary)] 1 tab PO DAILY 12/23/15 [History] Vit C/E/Zn/Coppr/Lutein/Zeaxan [Preservision Areds 2 Softgel] 1 cap PO DAILY 01/01/20 [History] Aspirin [Adult Low Dose Aspirin EC] 81 mg PO DAILY 01/16/20 [History] Metoprolol Tartrate 25 mg PO DAILY 01/16/20 [History] Cholecalciferol [Vitamin D3 (25 Mcg = 1000 Iu)] 25 mcg PO DAILY 12/15/22 [History] Clopidogrel [Plavix] 75 mg PO DAILY 12/15/22 [History] Mirabegron [Myrbetriq] 50 mg PO DAILY 12/15/22 [History] DAPTOmycin 350 mg IV DAILY #23 each 12/22/22 [Rx] Lactobacillus Acidophilus [Florajen Acidophilus] 1 each PO AC-BID #60 capsule 12/22/22 [Rx] lisinopriL [Zestril] 5 mg PO BID #60 tab 12/22/22 [Rx] Follow up Appointment(s)/Referral(s): [facility]Infusion [NON-STAFF] - 12/23/22 (Office will call with your appointment time.) See Lane DO [Primary Care Provider] - 1-2 days Abrahan Tellez MD [STAFF PHYSICIAN] - 1 Week Ambulatory/Diagnostic Orders: Basic Metabolic Panel [LAB.AMB] Location: None Selected C Reactive Protein [LAB.AMB] Location: None Selected Complete Blood Count w/diff [LAB.AMB] Location: None Selected Miscellaneous Lab Order [LAB.AMB] Location: None Selected Patient Instructions/Handouts: How to Care for Your PICC (Peripherally Inserted Central Catheter) (DC), PICC (Peripherally Inserted Central Catheter) (DC) Activity/Diet/Wound Care/Special Instructions: Activity: As tolerated Diet: Heart Healthy Special Instructions: No lipitor/Atorvastatin while on daptomycin, once you have completed daptomycin you will resume your Lipitor Keep your next appointment with cardiology associates Discharge Disposition: HOME WITH HOME HEALTH SERVICES
== END 2022-12-22 16:45 | disposition home or self-care (01) | DRG 872 ==
LOC: EC 06:12 → 4SSUR 08:50
PROVIDERS: ADMIT Student in an Organized Health Care Education/Training Program; ATTEND Student in an Organized Health Care Education/Training Program
PROC: B24BZZ4 Ultrasonography of Heart with Aorta, Transesophageal (ICD-10-PCS; 2022-12-19)
PROC: 02HV33Z Insertion of Infusion Device into Superior Vena Cava, Percutaneous Approach (ICD-10-PCS; principal; 2022-12-21 09:55)
DX: R78.81 Bacteremia (principal); T82.223A Leakage of biological heart valve graft, initial encounter; N17.9 Acute kidney failure, unspecified; E87.20 Acidosis, unspecified; B95.61 Methicillin susceptible Staphylococcus aureus infection as the cause of diseases classified elsewhere; I11.9 Hypertensive heart disease without heart failure; Z20.822 Contact with and (suspected) exposure to COVID-19; Z66 Do not resuscitate; E78.5 Hyperlipidemia, unspecified; I25.10 Atherosclerotic heart disease of native coronary artery without angina pectoris; H10.10 Acute atopic conjunctivitis, unspecified eye; I08.0 Rheumatic disorders of both mitral and aortic valves; K64.9 Unspecified hemorrhoids; R73.03 Prediabetes; Z79.82 Long term (current) use of aspirin; Z79.02 Long term (current) use of antithrombotics/antiplatelets; Z79.899 Other long term (current) drug therapy; Z95.3 Presence of xenogenic heart valve; Z95.5 Presence of coronary angioplasty implant and graft; Z71.3 Dietary counseling and surveillance; Z88.5 Allergy status to narcotic agent; Z88.8 Allergy status to other drugs, medicaments and biological substances
CPT/HCPCS: 36415; 36573; 71045; 71046; 76770; 78306; 80048; 80053; 81001; 83605; 84145; 85025; 85027; 85652; 86140; 87040; 87077; 87186; 87449; 87636; 93306; 93312; 93320; 93325; 94760; 96361; 96374; 96375; 99285